=== PATIENT | male | born 1955 | race Caucasian/White ===

== ENCOUNTER 2016-09-19 09:58 | Emergency (ER) | payer OTHER ==
[~2016-09-19] VITALS: Ht 182.9 cm; Wt 75.0 kg
[2016-09-19 10:03] VITALS: BP 159/104; PULSE 73; RESP 20; O2SAT 99
--- NOTE | 2016-09-19 12:02 | ED.REPORT ---
HPI-Neurologic Deficit Date of Service Sep 19, 2016 ED Provider: Florentino Green PA-C Dr. Reyes is a 61-year-old male with a history of Tourette syndrome who presents with chief complaint of weakness, back pain and abdominal pain. 3 week history of paraspinal pain between his shoulder blades associated with left flank pain and abdominal pain which is severe enough to prevent sleep. He states the pain is worse at night. Abdominal pain is not colicky, not relieved by belching or passing gas. He did not find an enema helpful. In the last week he has noticed numbness/tingling in his fingers and toes, has a sensation in his left hand is weak and ataxic and has developed a waddling gait. Last night he reports that he soaked in a hot tub, felt lightheaded stood up. After sitting for a moment he karolina again and had a syncopal episode in which he struck his head on the ground. He denies headache, vomiting, seizure, use of blood thinners. Has been seen both by his primary care provider in urgent care in the last 2 weeks. Abdominal series was suggestive of constipation. CBC and CMP were normal as well as urinalysis. The urgent care yesterday did note some small white lesions in his mouth. Nursing Notes Stated Complaint: BACKPAIN/WEAKNESS/ABDOMINAL PAIN Chief Complaint: General Complaint Nursing Notes Reviewed: Yes Allergies: Coded Allergies: codeine (Verified Allergy, Unknown, Rash, 09/19/16) primidone (Verified Allergy, Unknown, ANXIETY, 09/19/16) General Time Seen by Provider: 11:01 Chief Complaint Other (back pain, weakness, abdominal pain) Sudden in Onset?: No Review of Systems General: Denies fever, chills, malaise. HEENT: Denies congestion, headache, sore throat. Respiratory: Denies dyspnea, cough, shortness of breath, wheezing. Cardiovascular: Denies chest pain, palpitations. Gastrointestinal: Admits abdominal pain. Denies vomiting, diarrhea Genitourinary: Denies frequency, urgency, dysuria, hematuria. Otherwise as noted in HPI. Physical Exam General: Well appearing, well developed, well nourished, no acute distress. Head: Atraumatic, normocephalic. No mastoid tenderness. Eyes: No scleral icterus or injection. No discharge. PERRL. Vision grossly intact. Ears: Pinna and tragus nontender with manipulation. External auditory canal patent, atraumatic and without discharge. Tympanic membrane squires, shiny and translucent without fluid, bulging, retraction or perforation. Hearing grossly intact. Nose: Symmetrical, nares patent without discharge. No frontal or maxillary sinus tenderness. Mouth/pharynx: Mild 1 mm white papules noted on bilateral buccal mucous membrane. Palatal petechia noted. Normal dentition, mucus membranes moist. Tonsils 2+ and symmetrical, uvula midline. Pharynx noninjected, no cobblestoning or discharge. Voice clear. Neck: No tenderness or lymphadenopathy. Trachea midline. Respiratory: Regular rate and rhythm. Breath sounds present, clear to auscultation and equal bilaterally. No respiratory distress. No increased work of breathing, speaks in complete sentences. Cardiovascular: Regular rate and rhythm, without murmur, gallop or rub. No pedal edema. Gastrointestinal: Abdomen flat and non-tender without guarding or rebound. Bowel sounds normoactive. Skin: Warm and dry. Back: Multiple to inspection. No spinous process tenderness. Mild paraspinal tenderness in thoracic region. No CVA tenderness to palpation or percussion. Neurological: Mild upper body spasms noted. Finger-nose normal though the patient reports it feels clumsy, rapid hand normal, no pronator drift. Deltoid abduction, wrist flexion and extension, finger flexion and abduction strength 5/5 B/L. Sensation to sharp touch intact over deltoid as well as first , third and fifth digits B/L. Biceps, triceps and brachioradialis absent B/L. Slightly wide, toe walk, heel walk, Romberg. Hip flexion, knee extension, ankle dorsiflexion and plantarflexion strength 5/5 B/L. Patellar and Achilles reflexes absent B/L. Sensation to sharp touch intact at medial leg, dorsal foot and lateral foot B/L. negative seated leg raise, negative cross straight leg raise. Cranial nerves: Vision grossly intact, PERRL, EOMI. Facial motion symmetrical, sensation to light touch over forehead, maxilla and mandible present and equal B /L. Voice clear and fluent, no drooling/pooling of saliva, uvula rises midline. Psychological: Alert and oriented x3. Speech appropriate, linear and logical. Behavior appropriate. Initial Vital Signs Vital Signs (First) Date Time Temp Pulse Resp B/P Pulse Ox O2 Delivery O2 Flow Rate FiO2 09/19/16 10:03 36.0 73 20 159/104 99 Room Air Initial VS: Reviewed, Vital signs abnormal (elevated blood pressure) Interpretation & Diagnostics Interpretation & Diagnostics: PROCEDURE: MRI CERVICAL SPINE WITHOUT CONTRAST ([id number]) INDICATIONS: Upper extremity ataxia following trauma. IMPRESSION: 1. Mild multilevel degenerative disc disease. 2. Moderate to severe C5-C6 central canal narrowing secondary to degenerative changes. 3. Mild bilateral C4-C5 neural foraminal narrowing. Mild left C5-C6 and C6-C7 neural foraminal narrowing. 4. No neural impingement. 5. No evidence of fracture or subluxation. 6. Image quality by patient motion. Lab Results Interpretation Result Diagram: 09/19/16 1240 09/19/16 1240 Test 09/19/16 12:40 09/19/16 14:02 White Blood Count 11.4th/mm3 (3.8-10.1) Red Blood Count 4.96mil/mm3 (4.40-5.80) Hemoglobin 15.6g/dL (13.8-17.2) Hematocrit 42.3% (41.0-50.0) Mean Corpuscular Volume 85.3fL (81-100) Mean Corpuscular Hemoglobin 31.5pg (27.0-35.0) Mean Corpuscular Hemoglobin Concent 36.9% (32.0-37.0) Red Cell Distribution Width 12.8% (12.3-15.4) Platelet Count 265bil/L (150-400) Neutrophils (%) (Auto) 71.5% (40-74) Lymphocytes (%) (Auto) 18.0% (14-46) Monocytes (%) (Auto) 8.7% (4-12) Eosinophils (%) (Auto) 1.3% (0-5) Basophils (%) (Auto) 0.2% (0-3) Sodium Level 130mEq/L (134-144) Potassium Level 3.5mEq/L (3.5-5.2) Chloride Level 93mEq/L (97-108) Carbon Dioxide Level 20mmol/L (18-29) Blood Urea Nitrogen 19mg/dL (8-27) Creatinine 0.66mg/dL (0.76-1.27) Estimat Glomerular Filtration Rate 130mL/min (>59) Glucose Level 125mg/dL (60-99) Calcium Level 9.5mg/dL (8.5-10.1) Total Bilirubin 1.2mg/dL (0.0-1.2) Aspartate Amino Transf (AST/SGOT) 35U/L (0-50) Alanine Aminotransferase (ALT/SGPT) 34U/L (0-44) Alkaline Phosphatase 53U/L (25-160) Total Creatine Kinase 169U/L (21-232) Total Protein 7.1g/dL (6.4-8.4) Albumin 4.4g/dL (3.4-5.0) Hold Montesinos Top Tube Received (Received) Urine Color Straw (YELLOW) Urine Appearance Hazy (CLEAR,HAZY) Urine pH 6.0 (5.0-8.0) Urine Specific [place] 1.010 (1.003-1.035) Urine Protein Negativemg/dL (NEG,TRACE) Urine Glucose (UA) Negativemg/dL (NEGATIVE) Urine Ketones 15mg/dL (NEGATIVE) Urine Occult Blood Trace (NEGATIVE) Urine Nitrite Negative (NEGATIVE) Urine Bilirubin Negative (NEGATIVE) Urine Urobilinogen Normalmg/dL (NORMAL) Urine Leukocyte Esterase Negative (NEGATIVE) Urine RBC 0-2/hpf (0-2) Urine WBC 0-5/hpf (0-5) Urine Epithelial Cells Occasional/hpf (NONE-MOD) Urine Crystals None seen (NONE SEEN) Urine Bacteria None/hpf (NONE-FEW) Urine Hyaline Casts None/lpf (NONE) Urine Granular Casts None seen (NONE SEEN) Urine Waxy Casts None seen (NONE SEEN) Urine Red Blood Cell Casts None seen (NONE SEEN) Urine White Blood Cell Casts None seen (NONE SEEN) Urine Mucus Present (None Seen) Urine Trichomonas None seen (NONE SEEN) Urine Yeast None (NONE SEEN) Urinalysis Comment None Urine Culture Reflexed Not indicated Re-Eval/Medical Decision Med Decision/Clinical Course I discussed this case with Dr. Pack met with and examined the patient. 61-year-old male presents with chief complaint of weakness, abdominal pain and left flank pain. He believes the history begins approximately 3 weeks ago with a fall skiing. Pain in his back abdomen inside of them aggressively worse over the last 3 weeks. He now complains of left arm weakness and clumsiness as well as an altered gait. He describes a syncopal episode last night after getting out of a hot tub. Incidental finding of white papules on the buccal mucosa noted at a previous visit to the urgent care. Physical examination is largely benign with no abdominal tenderness, no CVA tenderness. Neurological examination reveals a normal finger to nose, however the patient states it feels ataxic. Dr. Alan Stock feels he may detected some weakness on the left tricep extension. There is also question of a slightly widened gait. CBC reveals only mild leukocytosis without left shift CMP is within acceptable limits. Urinalysis is normal discussed these findings with the patient's primary care provider who endorsed similar findings, and believes his gait is widened from his baseline. He feels that MRI is appropriate and expresses concern about herpetic encephalitis or possibly Guyon levin syndrome. Ordered a cervical spine MRI which reveals central canal stenosis as well as several levels of left-sided foraminal stenosis. Discussed findings with the neurologist who examined the MRI. She does not believe there is an emergent condition. She believes that his symptoms of weakness are most likely due to radiculopathy. She is not concerned about Guyon levin or encephalitis. She does not feel that a lumbar puncture is warranted. She advises primary care follow-up and physical therapy. I do not believe his abdominal pain is caused by an immediately dangerous condition such as appendicitis, cholecystitis, pancreatitis, pyelonephritis, nephrolithiasis. Discussed this with the patient. Advised primary care follow-up and consideration of physical therapy. Provided return precautions. Patient understands and agrees with the plan. Consultation #1: Referral / Consult Name: Harjeet Aragon MD Consulted With: Primary care physician Call Returned at: 11:50 Note: Discussed the case with patient's primary care physician. He finds the onset of neurological symptoms and white vesicles concerning. He expresses concern regarding perhaps hepatic encephalopathy or Guillain-Levin syndrome. He has noted slightly reduced inspector screen printing and slight arm drooped and his neurological examination as well as a wide gait. He believes the patient needs head and spine MRI, as well as culturing of the vesicles in his mouth. Consultation #2: Referral / Consult Name: Hafsa Barger MD Consulted With: Neurology Requested Call at: 13:50 Call Returned at: 13:59 Note: Dr. More reviewed cervical spine MRI, noted possible T5-6 herniation which is most likely chronic as well as possible foraminal narrowing on the left side. Negative for cord compression. She does not believe further investigation is warranted. She is not concerned about herpetic encephalopathy or Guyon levin at this point. She does not believe a lumbar puncture is warranted. Advised primary care follow-up, consider physical therapy. Discharge & Departure Impression: Primary Impression: Weakness Additional Impression: Abdominal pain Abdominal location: unspecified location Qualified Code: R10.9 - Unspecified abdominal pain Disposition: Home Discharge Condition All VS Reviewed: Yes Condition: Stable Additional Instructions: Evaluation for weakness and abdominal pain in the emergency department. Cervical spine MRI revealed degenerative changes that may be responsible for your weakness. I discussed these results with the neurologist who feels that primary care follow-up and considering physical therapy is appropriate. She did not feel that further investigation was warranted. CBC, CMP and urinalysis did not indicate any acute infection or organ dysfunction that would be responsible for your abdominal pain. I do not think this is caused by an immediately dangerous condition. Considering your previous findings on x-ray I think it would be appropriate to trial over-the- counter MiraLAX for 1 week. Please follow up with your primary care provider in the next week or so. Return to the emergency department for any new or worsening symptoms including new weakness, stroke symptoms, fever or severe headache. Referrals: Harjeet Aragon MD EDSupervising Provider for APC: Melo Pack MD Attending Statement I discussed patient with RYLAN Green. I was asked to evaluate patient. In brief 61-year-old male presenting with a bizarre constellation of symptoms including upper extremity weakness and clumsiness as well as lower extremity weakness. Also with trauma while skiing one month ago with subsequent muscle aches treated with narcotics. Left flank tenderness diagnosed as musculoskeletal by other physicians. His pain is mostly resolved now just complaining of some clumsiness. No headache or fevers. His abdomen is soft nontender. He has no meningeal signs or symptoms. His neurological exam is normal. MRIs C-spine performed which showed central cord stenosis at C5-6. He has no neuro deficits at this time. Labs are unremarkable. Neurology was consulted who recommended discharging the patient home without a lumbar puncture or further testing. Patient is advised by RYLAN Green to follow-up with his primary doctor regarding his MRI findings and his symptoms. copies to: Harjeet Aragno MD, Seth PA-C Sep 19, 2016 12:02 Melo Pack MD Sep 19, 2016 18:00
[2016-09-19 12:06] VITALS: BP 142/96; PULSE 74; RESP 18; O2SAT 97
[2016-09-19 12:49] LABS: BASOPHILS % (AUTO) 0.2 % (0-3); EOSINOPHILS % (AUTO) 1.3 % (0-5); MONOCYTES % (AUTO) 8.7 % (4-12); Mean Corpuscular Hemoglobin 31.5 pg (27.0-35.0); Mean Corpuscular Volume 85.3 fL (81-100); NEUTROPHILS % (AUTO) 71.5 % (40-74); Platelet Count 265 bil/L (150-400)
--- NOTE | 2016-09-19 14:14 | DRSVH ---
PROCEDURE: MRI CERVICAL SPINE WITHOUT CONTRAST ([id number]) INDICATIONS: Upper extremity ataxia following trauma. TECHNIQUE: Noncontrast sagittal T1 spin echo and T2 fast spin echo, sagittal STIR, foraminal oblique sagittal T2 fast spin echo, and axial gradient echo or T2 fast spin echo through the cervical spine. COMPARISON: [facility] , MR, CERVICAL SPINE W&W/O CONTRAST, 02/13/2007, 19:23. FINDINGS: Image quality: Limited by motion artifact. Alignment and Curvature: There is normal bony alignment and curvature. Bone Marrow: Marrow demonstrates normal overall signal. No evidence of vertebral body compression fr acture. No subluxation. Spinal Cord: Visualized spinal cord has normal size and signal. No cerebellar tonsillar herniation. Paraspinous Soft Tissues: No paravertebral masses. Prevertebral soft tissues are normal in thicknes s. No paraspinous soft tissue hematomas or edema. C2-C3: Loss of disc signal. No central stenosis. No neural foraminal narrowing. No neural impingement . C3-C4: Loss of disc signal. Small central disc protrusion superimposed upon diffuse disc bulge. No ce ntral stenosis. No neural foraminal narrowing. No neural impingement. C4-C5: Loss of disc signal. Mild, diffuse disc bulge. Small central disc protrusion superimposed on d iffuse disc bulge. Mild narrowing of the central canal secondary to disc disease. Mild bilateral neur al foraminal narrowing secondary to disc disease. No neural impingement C5-C6: Loss of the signal. Mild, diffuse disc bulge. Small central disc protrusion superimposed on di ffuse disc bulge. Moderate to severe narrowing of the central canal secondary to disc disease. Mild l eft neural foraminal narrowing secondary to disc disease. No neural impingement. C6-C7: Disc has a normal appearance. Mild left facet hypertrophy. No central stenosis. Mild left neur oforaminal narrowing secondary to facet hypertrophy. No neural impingement. C7-T1: Normal appearance. IMPRESSION: 1. Mild multilevel degenerative disc disease. 2. Moderate to severe C5-C6 central canal narrowing secondary to degenerative changes. 3. Mild bilateral C4-C5 neural foraminal narrowing. Mild left C5-C6 and C6-C7 neural foraminal narrow ing. 4. No neural impingement. 5. No evidence of fracture or subluxation. 6. Image quality by patient motion. Dictated by: Torri Weeks MD, PhD on 09/19/2016 at 13:45 Approved by: Torri Weeks MD, PhD on 09/19/2016 at 14:12
[2016-09-19 14:20] LABS: APPEARANCE,URINE HAZY (CLEAR,HAZY); COLOR,URINE STRAW (YELLOW); OCCULT BLOOD,URINE TRACE (NEGATIVE); UROBILINOGEN,URINE NORMAL (NORMAL)
[2016-09-19 14:58] VITALS: BP 112/64; PULSE 72; RESP 16; O2SAT 99
== END 2016-09-19 14:58 | disposition home or self-care (01) ==
LOC: SED 09:58
DX: R53.1 Weakness (principal); R10.9 Unspecified abdominal pain; R27.0 Ataxia, unspecified; Z88.5 Allergy status to narcotic agent

== ENCOUNTER 2016-09-23 09:12 | Emergency (ER) | payer OTHER ==
[~2016-09-23] VITALS: Ht 182.9 cm; Wt 74.5 kg
[2016-09-23 09:18] VITALS: BP 160/98; PULSE 73; RESP 18; O2SAT 100
--- NOTE | 2016-09-23 09:41 | ED.REPORT ---
HPI-Abd Pain M 40 and Over Date of Service Sep 23, 2016 ED Provider: Tad Escoto DO Pt is a 61 y/o male w/ a hx of non-Hodgkin's lymphoma, presenting to the ED with chief complaint of intermittent LUQ and left flank abdominal pain onset 24 days ago. He c/o associated generalized weakness, pleuritic abdominal pain. He normally swims 3x per week but last week found it significantly more difficult to bring himself through the water because of bilateral arm weakness. He reports his weakness is most profound about his bilateral arms with associated tingling sensation of the fingertips. He denies dysphagia, diplopia, fever, chills, CP, SOB, focal numbness/weakness, ROMAN. He was seen by Urgent Care and they told him that he had a rash in his mouth which subsequently tested negative for Herpes. 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 Nursing Notes Stated Complaint: WEAKNESS,LACK OF SLEEP,ABD PAIN Chief Complaint: General Complaint Nursing Notes Reviewed: Yes Allergies: Coded Allergies: codeine (Verified Allergy, Unknown, Rash, 09/19/16) primidone (Verified Allergy, Unknown, ANXIETY, 09/19/16) Scheduled Atorvastatin Calcium (Atorvastatin Calcium) 10 Mg Tablet 10 MG PO DAILY Cholecalciferol (Vitamin D3) (Vitamin D) 1,000 Unit Capsule 2,000 UNIT PO DAILY Diazepam (Valium) 5 Mg Tablet 5 MG PO HS Loratadine (Claritin) 10 Mg Capsule 10 MG PO DAILY Naproxen Sodium (Aleve) 220 Mg Capsule 220 MG PO TID Omeprazole Magnesium (Prilosec Otc) 20 Mg Tablet.dr 20 MG PO DAILY Propranolol HCl (Propranolol HCl) 10 Mg Tablet 10 MG PO TID Scheduled PRN Acetaminophen (Acetaminophen) 325 Mg Tablet 650 MG PO Q4H PRN PRN For Pain Lorazepam (Lorazepam) 1 Mg Tablet 1 MG PO TID PRN PRN For Anxiety Sennosides (Senna) 8.6 Mg Tablet 8.6 MG PO PRN For Constipation Zolpidem (Zolpidem) 10 Mg Tablet 10 MG PO HS PRN PRN For Insomnia oxyCODONE-Acetaminophen 5-325 mg (oxyCODONE-Acetaminophen 5-325 mg) 1 Each Tablet 1 TAB PO Q6H PRN PRN For Pain Miscellaneous Medications Levothyroxine (Levothyroxine) 88 Mcg Tablet Polyethylene Glycol 3350 (Miralax) 17 Gm Powd.pack 17 GM PO Simethicone (Gas-X) 125 Mg Capsule 125 MG PO General Time Seen by MD: 09:38 Chief Complaint Abdominal pain Hx Obtained From: Patient Arrived By: Walk-in Sudden in Onset?: No Onset Occurred: More than a week ago... 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 Neurologic: Reports: Numbness, Weakness, Denies: Focal weakness, Headache Physical Exam Initial Vital Signs Vital Signs (First) Date Time Temp Pulse Resp B/P Pulse Ox O2 Delivery O2 Flow Rate FiO2 09/23/16 09:18 36.1 73 18 160/98 100 09/23/16 14:15 Room Air Initial VS: Reviewed, Vital signs abnormal Head / Eyes: Atraumatic, Normocephalic, PERRL ENT: Mucous membranes moist, Conjunctiva normal, No scleral icterus Neck: Supple, Full range of motion Extremities: Vascular intact, Neuro intact, No swelling, No tenderness Skin: Warm, Dry, No cyanosis Psychiatric: Mood/affect normal, Behavior normal, Normal thought content General/Constitutional: Awake, Alert, No acute distress, Well appearing, Cooperative, Not toxic appearing Respiratory / Chest: Atraumatic, Breath sounds NL, Breath sounds = bilat, No respiratory distress, No rales, No rhonchi, No wheezing, No retractions, No stridor, No chest tenderness, No chest wall deformity, No crepitus Cardiovascular: Heart rate NL, Regular rhythm, Heart sounds NL, No gallop, No murmurs, No rubs, Cap refill not delayed, Peripheral circulation NL Abdomen: Atraumatic, Soft, Non-tender, No guarding, No rebound, No distention, No palpable mass Back: Atraumatic, Inspection NL, Full range of motion, Painless range of motion , Non-tender, No midline vertebral tend, No paraspinal tenderness, No muscle spasm Neurologic: Oriented X3, Speech NL, No motor deficits, No sensory deficits, CN II - XII intact, Cerebellar NL, Memory NL, Gait NL Resting twitch - he attributes to Tourettes Interpretation & Diagnostics Interpretation & Diagnostics: Chest/abd/pelvis w/ contrast: IMPRESSION: 1. Biapical scarring. No definitive CT findings to explain pleuritic left chest pain. 2. Probable mild gastric wall thickening versus artifact. 3. Prominent prostate. Dictated by: Karley Serrato M.D. on 09/23/2016 at 13:05 Approved by: Karley Serrato M.D. on 09/23/2016 at 13:10 Lab Results Interpretation Result Diagram: 09/23/16 1017 09/23/16 1017 Test 09/23/16 10:17 White Blood Count 10.3th/mm3 (3.8-10.1) Red Blood Count 4.90mil/mm3 (4.40-5.80) Hemoglobin 15.3g/dL (13.8-17.2) Hematocrit 41.8% (41.0-50.0) Mean Corpuscular Volume 85.3fL (81-100) Mean Corpuscular Hemoglobin 31.2pg (27.0-35.0) Mean Corpuscular Hemoglobin Concent 36.6% (32.0-37.0) Red Cell Distribution Width 12.8% (12.3-15.4) Platelet Count 281bil/L (150-400) Neutrophils (%) (Auto) 66.4% (40-74) Lymphocytes (%) (Auto) 19.1% (14-46) Monocytes (%) (Auto) 11.9% (4-12) Eosinophils (%) (Auto) 1.9% (0-5) Basophils (%) (Auto) 0.5% (0-3) Prothrombin Time 11.1sec (8.1-12.5) Prothromb Time International Ratio 1.04ratio Sodium Level 132mEq/L (134-144) Potassium Level 3.8mEq/L (3.5-5.2) Chloride Level 93mEq/L (97-108) Carbon Dioxide Level 24mmol/L (18-29) Blood Urea Nitrogen 18mg/dL (8-27) Creatinine 0.73mg/dL (0.76-1.27) Estimat Glomerular Filtration Rate 116mL/min (>59) Glucose Level 117mg/dL (60-99) Lactic Acid Level 1.5mmol/L (0.4-2.0) Calcium Level 9.5mg/dL (8.5-10.1) Magnesium Level 2.1mg/dL (1.6-2.6) Total Bilirubin 0.6mg/dL (0.0-1.2) Aspartate Amino Transf (AST/SGOT) 33U/L (0-50) Alanine Aminotransferase (ALT/SGPT) 33U/L (0-44) Alkaline Phosphatase 57U/L (25-160) Total Protein 7.2g/dL (6.4-8.4) Albumin 4.4g/dL (3.4-5.0) Lipase 105U/L (13-60) ECG Interpretation ECG Interpretation: Sinus rhythm rate 69 Multiple PVCs Probable LAE Time: 10:09 Interpreted by: ED physician Normal ECG Interpretation: No acute ischemic changes Re-Eval/Medical Decision Med Decision/Clinical Course 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 He has had several evaluations and workups with multiple providers without a clear explanation. For this reason, a more resource intensive diagnostic evaluation was performed which included laboratory evaluation and CAT scans of the chest abdomen and pelvis. There are no clinically significant abnormality on CAT scan, he has mild elevation of his lipase and mild hyponatremia neither which seem to be clinically significant. Etiology of his symptoms are unclear if he has met milestones with which to go home, he is not prominently septic or clinically unstable, he is ambulatory, there is no impending respiratory compromise. His symptoms do not seem to focalize to a particular spinal level, and he has already had MRIs of the head and C-spine that per his report were normal. While He complains of weakness, overall he is rather functional at this time. The etiology of his symptoms as yet unclear, I feel this patient would greatly benefit from very close outpatient follow-up with his primary care and with neurology. Strict return and follow-up precautions given. Of note, his other large concern is inability to sleep due to this left upper quadrant pain, he was prescribed Valium and oxycodone for this. Time of Eval: 11:53 Re-Evaluation/Progress Note: Pt rechecked. Feels similar. Discussed lab results. Time of Eval: 13:51 Patient Status: Condition improved Re-Evaluation/Progress Note: Pt rechecked. Informed pt of plan for treatment. Pt understands and agrees with plan for treatment. F/U and RTER warnings given. All questions addressed. Counseled Regarding: Diagnosis, Lab results, Need for follow-up, When/why to return to ED Discharge & Departure Primary Impression: Weakness Additional Impression: Abdominal pain Abdominal location: unspecified location Qualified Code: R10.9 - Unspecified abdominal pain Disposition: Home Vital Signs - All Vital Signs Date Time Temp Pulse Resp B/P Pulse Ox O2 Delivery O2 Flow Rate FiO2 09/23/16 14:17 37.0 75 16 178/104 75 Room Air 09/23/16 14:15 37.0 75 16 178/104 75 Room Air 09/23/16 09:18 36.1 73 18 160/98 100 )( All Prior VS Reviewed: Yes Condition: Stable Additional Instructions: I am so sorry that this is happening, I hope that you find a solution and some relief soon. Use the medications prescribed. Be sure to call your regular doctor in the morning and also follow-up with neurology. Return to ER as needed for worsening or progressive symptoms. Referrals: Nato Winters MD (PCP) Scribe Attestation Portions of this note were transcribed by Francisco Ramos. I, Dr. Escoto personally performed the history, physical exam and medical decision-making; I reviewed and confirmed the accuracy of the information in the transcribed note. Signed by Sandy Max, 09/23/16 - 1030 copies to: Nato Winters MD, Timothy S DO Sep 23, 2016 09:41 FRANCISCO RAMOS Sep 23, 2016 10:12
[2016-09-23] MEDS ORDERED: 0.9% Sodium Chloride 1,000 ML IV ONE (09:52)
[2016-09-23] MEDS ORDERED: Ondansetron 2 mg/mL 2 mL Inj IVPUSH PRN (09:55)
[2016-09-23 10:35] LABS: BASOPHILS % (AUTO) 0.5 % (0-3); EOSINOPHILS % (AUTO) 1.9 % (0-5); MONOCYTES % (AUTO) 11.9 % (4-12); Mean Corpuscular Hemoglobin 31.2 pg (27.0-35.0); Mean Corpuscular Volume 85.3 fL (81-100); NEUTROPHILS % (AUTO) 66.4 % (40-74); Platelet Count 281 bil/L (150-400)
[2016-09-23] MEDS ORDERED: LORA1TAB PO (10:44)
[2016-09-23] MEDS ORDERED: CHOL100045 PO (10:44)
[2016-09-23] MEDS ORDERED: SIME125C PO (10:44)
[2016-09-23] MEDS ORDERED: ACET325T51 PO (10:44)
[2016-09-23] MEDS ORDERED: ATOR10TA66 PO (10:44)
[2016-09-23] MEDS ORDERED: SENN-133 PO (10:44)
[2016-09-23] MEDS ORDERED: POLY17PO6 PO (10:44)
[2016-09-23] MEDS ORDERED: OMEP20TA24 PO (10:44)
[2016-09-23] MEDS ORDERED: LEVO88TA4 PO (10:44)
[2016-09-23] MEDS ORDERED: NAPR220C11 PO (10:44)
[2016-09-23] MEDS ORDERED: ZOLP10TA5 PO (10:44)
[2016-09-23] MEDS ORDERED: LORA10CA PO (10:44)
[2016-09-23] MEDS ORDERED: PROP10TA8 PO (10:44)
[2016-09-23 10:48] LABS: INR 1.04 ratio
[2016-09-23 10:56] LABS: Magnesium 2.1 mg/dL (1.6-2.6)
[2016-09-23] MEDS ORDERED: Iohexol 300 mg/mL 30 mL Inj PO ONE (11:25)
--- NOTE | 2016-09-23 13:12 | DRSVH ---
PROCEDURE: CT CHEST, ABDOMEN AND PELVIS [facility] CONTRAST ([id number]) INDICATIONS: pleuritic chest pain, LUQ pain TECHNIQUE: After the administration of oral and intravenous contrast, 5 mm thick sections acquired from the lung apices to the symphysis. 5 mm coronal and sagittal reformats were performed, with additional 7 mm c oronal MIP reformats through the lungs. For radiation dose reduction, the following was used: autom ated exposure control, adjustment of mA and/or kV according to patient size. COMPARISON: None. FINDINGS: Image quality: Excellent. CHEST: Lungs and pleura: There are biapical scars. No acute airspace opacities. No pleural effusions or pn eumothorax. Central and peripheral airways appear patent and normal in caliber. Mediastinum: Heart size is normal. No pericardial effusion. No mediastinal or hilar adenopathy by size criteria. Thoracic aorta and central pulmonary arteries are normal in size. Esophagus is farhan l in caliber. No hiatal hernia. Chest wall: No axillary or supraclavicular adenopathy by size criteria. Thyroid gland is normal. ABDOMEN: Solid organs: Liver and spleen are normal in size and enhancement. Gallbladder is normal. Biliary system is non dilated. Pancreas enhances normally. No adrenal nodules. Kidneys demonstrate normal size and enhancement, without hydronephrosis. Peritoneum and bowel: Stomach appears mildly thickened versus artifact. Bowel loops demonstrate norm al wall thickness and caliber. No free fluid or air. Nodes and vessels: No retroperitoneal or mesenteric adenopathy by size criteria. Aorta and inferior vena cava are normal in size. Miscellaneous: No ventral hernias. PELVIS: Genitourinary: Bladder wall thickness is normal. Prostate is enlarged. Miscellaneous: No inguinal hernias or adenopathy. Bones: No suspicious bony lesions. No vertebral body compression fractures. IMPRESSION: 1. Biapical scarring. No definitive CT findings to explain pleuritic left chest pain. 2. Probable mild gastric wall thickening versus artifact. 3. Prominent prostate. Dictated by: Karley Serrato M.D. on 09/23/2016 at 13:05 Approved by: Karley Serrato M.D. on 09/23/2016 at 13:10
[2016-09-23] MEDS ORDERED: OXYC1TAB24 PO (13:48)
[2016-09-23] MEDS ORDERED: DIAZ5TAB PO (13:48)
[2016-09-23 14:15] VITALS: BP 178/104; PULSE 75; RESP 16; O2SAT 75
[2016-09-23 14:17] VITALS: BP 178/104; PULSE 75; RESP 16; O2SAT 75
== END 2016-09-23 14:19 | disposition home or self-care (01) ==
LOC: SED 09:12
DX: R10.12 Left upper quadrant pain (principal); R10.32 Left lower quadrant pain; R53.1 Weakness; R20.2 Paresthesia of skin; J45.20 Mild intermittent asthma, uncomplicated; Z98.890 Other specified postprocedural states; Z88.5 Allergy status to narcotic agent; Z88.8 Allergy status to other drugs, medicaments and biological substances
CPT/HCPCS: 36415; 71260; 74177; 80053; 83605; 83690; 83735; 85025; 85610; 93005; 96361; 96374; 96375; 99285; J2270; J2405; J7030; Q9967

== ENCOUNTER 2016-09-25 09:41 | Inpatient (IN) | payer OTHER ==
[~2016-09-25] VITALS: Ht 182.9 cm; Wt 75.4 kg
[2016-09-25] VITALS (10 sets, daily range): BP systolic 155–199; BP diastolic 93–107; PULSE 69–91; RESP 15–25; O2SAT 95–100
[~2016-09-25 09:41] MED LIST: ACET325T51 PO; ATOR10TA66 PO; CHOL100045 PO; DIAZ5TAB PO; LEVO88TA4 PO; LORA10CA PO; LORA1TAB PO; NAPR220C11 PO; OMEP20TA24 PO; OXYC1TAB24 PO; POLY17PO6 PO; PROP10TA8 PO; SENN-133 PO; SIME125C PO; ZOLP10TA5 PO
--- NOTE | 2016-09-25 10:10 | ED.REPORT ---
HPI-General Illness Date of Service Sep 25, 2016 ED Provider: Andrew Stout MD Pt is a 61 y/o male w/ a hx of previous non Hodgkin's lymphoma presenting to the ED w/ his c/o progressively worsening weakness of all 4 extremities onset 3.5 weeks ago. He c/o associated paresthesias of the fingertips and toes along with decreased him clerk strength onset unknown, weakened cough. He believes that his weakness is mildly more pronounced about his left arm and leg. He notes that he swims regularly but recently has been having trouble because of arm and leg weakness. The onset of his symptoms included left flank pain which localized to the LUQ which is intermittently severe enough to cause him to be unable to sleep. He has been seen in the ED twice and Urgent Care multiple times in the recent future for which the etiology of his symptoms has been unclear. His last ED visit involved a CT w/ contrast of the chest, abdomen, and pelvis which showed no findings responsible for his symptoms. A previous ED visit included MRI of the c-spine which showed herniated discs with no acute changes. MRI of the [facility] at [facility] 3 months ago was normal. 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 He also notes increase in blood pressure recently (180-190 systolic) which he states is very abnormal for him (he normally runs low). Pt denies nausea, vomiting, dysphagia, vision change, speech change, fever, chills. He went to a resort in [place] in mid-July of this year and developed a febrile respiratory illness which has now resolved. He is not anticoagulated. 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 Nursing Notes Stated Complaint: SEVERE HYPERTENSION,PROBABLE GUILLAIN BARRE Chief Complaint: General Complaint Nursing Notes Reviewed: Yes Allergies: Coded Allergies: codeine (Verified Allergy, Unknown, Rash, 09/25/16) primidone (Verified Allergy, Unknown, ANXIETY, 09/25/16) Scheduled Atorvastatin Calcium (Atorvastatin Calcium) 10 Mg Tablet 10 MG PO HS Cholecalciferol (Vitamin D3) (Vitamin D) 1,000 Unit Capsule 2,000 UNIT PO DAILY Levothyroxine (Levothyroxine) 88 Mcg Tablet 88 MCG PO DAILY Loratadine (Claritin) 10 Mg Capsule 10 MG PO DAILY Melatonin (Melatonin 1 mg Tablet) 1 Each Tablet 1 MG PO HS Naproxen Sodium (Aleve) 220 Mg Capsule 220 MG PO TID Omeprazole Magnesium (Prilosec Otc) 20 Mg Tablet.dr 20 MG PO DAILY Polyethylene Glycol 3350 (Miralax) 17 Gm Powd.pack 17 GM PO DAILY Propranolol HCl (Propranolol HCl) 10 Mg Tablet 10 MG PO TID Sennosides (Senna) 8.6 Mg Tablet 17.2 MG PO DAILY Triamcinolone Acetonide (Nasacort) 10.8 Ml [place] 1 SPRAY NS DAILY Scheduled PRN Acetaminophen (Acetaminophen) 325 Mg Tablet 650 MG PO BID PRN PRN For Pain Diazepam (Diazepam) 5 Mg Tablet 5 MG PO TID PRN PRN For Anxiety Zolpidem (Zolpidem) 10 Mg Tablet 10 MG PO HS PRN PRN For Insomnia oxyCODONE-Acetaminophen 5-325 mg (oxyCODONE-Acetaminophen 5-325 mg) 1 Each Tablet 1 TAB PO Q6H PRN PRN For Pain General Time Seen by MD: 09:55 Chief Complaint Weakness Hx Obtained From: Patient Arrived By: Walk-in Onset Occurred: More than a week ago... 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 Physical Exam Vital Signs Vital Signs Date Time Temp Pulse Resp B/P Pulse Ox O2 Delivery O2 Flow Rate FiO2 09/25/16 15:16 91 19 156/95 95 Room Air 09/25/16 14:13 74 15 167/107 09/25/16 11:31 71 25 160/94 97 Room Air 09/25/16 09:43 36.7 69 18 186/104 97 Room Air Initial VS: Reviewed, Vital signs abnormal Head / Eyes: Atraumatic, Normocephalic, PERRL ENT: Mucous membranes moist, Conjunctiva normal, No scleral icterus Neck: Supple, Full range of motion Respiratory: Breath sounds normal, Clear to auscultation, No respiratory distress Cardiovascular: Regular rate & rhythm, Heart sounds normal, Intact distal pulses Skin: Warm, Dry, No cyanosis Psychiatric: Mood/affect normal, Behavior normal, Normal thought content General/Constitutional: Awake, Alert, No acute distress, Well appearing, Cooperative, Not toxic appearing Abdomen: Atraumatic, Soft, Non-tender, McBurney's non-tender, No guarding, No rebound, BS normoactive, No distention, No palpable mass Organomegaly / Mass / Hernia: Negative: Hepatomegaly, Splenomegaly Neurologic: Oriented X3, Speech NL, Memory NL right quadriceps 5/5, hamstring strength 4/5 left quadriceps 4/5, hamstring strength 5/5 Left Babinski's are equivocal, Right toes are down-going Left patellar reflex 2+ Right patellar reflex absent Power Brake Operator strength 4/5 bilat Elbow extensors are subjectively weak Flexors 3/5 on left, 4/5 on right Interpretation & Diagnostics Lab Results Interpretation Result Diagram: 09/25/16 1029 09/25/16 1029 Test 09/25/16 10:29 09/25/16 11:28 09/25/16 16:18 White Blood Count 11.3th/mm3 (3.8-10.1) Red Blood Count 4.56mil/mm3 (4.40-5.80) Hemoglobin 14.4g/dL (13.8-17.2) Hematocrit 40.2% (41.0-50.0) Mean Corpuscular Volume 88.2fL (81-100) Mean Corpuscular Hemoglobin 31.6pg (27.0-35.0) Mean Corpuscular Hemoglobin Concent 35.8% (32.0-37.0) Red Cell Distribution Width 13.1% (12.3-15.4) Platelet Count 278bil/L (150-400) Neutrophils (%) (Auto) 72.1% (40-74) Lymphocytes (%) (Auto) 15.6% (14-46) Monocytes (%) (Auto) 9.5% (4-12) Eosinophils (%) (Auto) 2.1% (0-5) Basophils (%) (Auto) 0.4% (0-3) Sodium Level 131mEq/L (134-144) Potassium Level 4.1mEq/L (3.5-5.2) Chloride Level 95mEq/L (97-108) Carbon Dioxide Level 23mmol/L (18-29) Blood Urea Nitrogen 17mg/dL (8-27) Creatinine 0.78mg/dL (0.76-1.27) Estimat Glomerular Filtration Rate 107mL/min (>59) Glucose Level 111mg/dL (60-99) Calcium Level 9.0mg/dL (8.5-10.1) Total Bilirubin 0.5mg/dL (0.0-1.2) Aspartate Amino Transf (AST/SGOT) 61U/L (0-50) Alanine Aminotransferase (ALT/SGPT) 41U/L (0-44) Alkaline Phosphatase 41U/L (25-160) Total Protein 6.8g/dL (6.4-8.4) Hold [place] Top Tube Received (Received) Hold Urine Received (Received) CSF Appearance Clear (CLEAR) CSF Color Colorless (COLORLESS) CSF WBC 1/mm3 (0-5) CSF RBC 0/mm3 CSF Mononuclear WBCs % CSF Polynuclear WBCs % CSF Other Cells CSF Glucose 70mg/dL (45-90) CSF Total Protein 75mg/dL (15-45) Lab Results Interpretation: Negative inspiratory foce normal at 36. 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 Additionally he does give a history of a viral type prodrome. Negative inspiratory force was normal at 36, he does have weakness on neuro exam, her left foot elevated protein at 75 on the lumbar puncture. Admitted to telemetry with neurology consulting. Time of Eval: 16:04 Re-Evaluation/Progress Note: Pt rechecked. LP performed with no complications. Pt informed of need for admission for complete neurological evaluation. Pt understands and agrees with plan for admission. All questions addressed. Consultation #1: Referral / Consult Name: Stephen Duarte MD Consulted With: Neurology Call Returned at: 15:44 Glass Laminating Operator: Will see patient, Agrees with eval, Agrees with plan Note: Agrees with plan for admit for full neurological evaluation. Will consult. Consultation #2: Consulted With: Hospitalist Call Returned at: 16:48 Glass Laminating Operator: Will see patient, Agrees with eval, Agrees with plan, Accepts admit Counseled Regarding: Diagnosis, Lab results, Need for admission Discharge & Departure Primary Impression: Guillain Baez syndrome Disposition: ADMITTED TO HOSPITAL Discharge Condition All VS Reviewed: Yes Condition: Stable Referrals: Nato Winters MD (PCP) Scribe Attestation Portions of this note were transcribed by Francisco Ramos. I, Dr. Stout personally performed the history, physical exam and medical decision-making; I reviewed and confirmed the accuracy of the information in the transcribed note. Signed by Sandy Max, 09/25/16 - 1100 copies to: Nato Winters MD, Donald L MD Sep 25, 2016 10:10 FRANCISCO RAMOS Sep 25, 2016 10:13
[2016-09-25 11:42] LABS: BASOPHILS % (AUTO) 0.4 % (0-3); EOSINOPHILS % (AUTO) 2.1 % (0-5); MONOCYTES % (AUTO) 9.5 % (4-12); Mean Corpuscular Hemoglobin 31.6 pg (27.0-35.0); Mean Corpuscular Volume 88.2 fL (81-100); NEUTROPHILS % (AUTO) 72.1 % (40-74); Platelet Count 278 bil/L (150-400)
[2016-09-25] MEDS ORDERED: fentaNYL-PF 50 mCg/mL 2 mL Inj IVPUSH ONE (15:30)
[2016-09-25 17:07] LABS: APPEARANCE,CSF SLIGHTLY CLOUDY (CLEAR); COLOR,CSF STRAW (COLORLESS); WHITE BLOOD CELL,CSF 3 /mm3 (0-5)
[2016-09-25 17:08] LABS: APPEARANCE,CSF CLEAR (CLEAR); COLOR,CSF COLORLESS (COLORLESS); WHITE BLOOD CELL,CSF 1 /mm3 (0-5)
[2016-09-25] MEDS ORDERED: POLY17PO6 PO (17:32)
[2016-09-25] MEDS ORDERED: TRIA10.8 NS (17:32)
[2016-09-25] MEDS ORDERED: MELA1TAB10 PO (17:32)
[2016-09-25] MEDS ORDERED: DIAZ5TAB3 PO (17:32)
[2016-09-25] MEDS: hydrALAZINE 20 mg/mL Inj IV PRN (17:56)
--- NOTE | 2016-09-25 18:14 | NUR ---
Admission Admit to room 3007 from ER via [facility] with at bedside. Maintaining RA, SL, A&O x3. Admission RN completing admission assessments and Med Rec. HTN present and provider notified. Provider assessed and new orders for PRN Hydralazine and Amlodipine. Oriented to room and call light. Tele applied. Pt comfortable at this time.
[2016-09-25] MEDS ORDERED: oxyCODONE-Acetamin 5-325 mg Tablet PO PRN ×2 (19:30→22:49)
[2016-09-25] MEDS: Polyethylene Glycol (PEG) 17 Gm Powder PO SCH (19:30)
--- NOTE | 2016-09-25 19:38 | PCM.HPMED ---
Subjective Date of Service Sep 25, 2016 Primary Provider: Admitting Physician: Jed Carrasco MD Primary Care Physician: Nato Winters MD Attending Physician: Jed Carrasco MD Chief Complaint: Worsening upper and lower extremity weakness History of Present Illness: This is a 61 y/o male w/ a hx of previous non Hodgkin's lymphoma , anxiety disorder Tourette Syndrome who presented to the ED w/ his c/o progressively worsening weakness of all 4 extremities for the last past 3 weeks and a half or so. 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 He stated his cough has been weak as well but denies shortness of breath. Extremity weakness is mildly more pronounced at his left arm and leg. A week ago or so he went to his regular swimming activity at the [facility] he said and noted this time he cannot swims as he regularly due to his weakness . He had a couple visit to the emergency room and multiple work up end up empty handed . He also had left flank pain which localized to the LUQ which is intermittently severe enough to cause him to be unable to sleep. a ct scan of chest, abdomen and pelvis were negative. On 09/19/2016, he visited the ED and an MRI of the c-spine showed herniated discs with no acute changes. MRI of the brain at [facility] 3 months ago was normal. Patient was given a referral to a neurologist ( Dr spivey) , only contacted today over the phone and recommended him to continue emergency room again for evaluation for Guillain-[place] syndrome. An ER his blood pressure was found to be 180-190 systolic. 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 He takes propranolol daily for tremor. No nausea, vomiting, dysphagia, vision change, speech change, fever, chills. Of note , patient was on vacation in [place] 3 months ago and had a flu/febrile illness Review of Systems: Review of systems is pertinent for described above in history of present illness otherwise a comprehensive x 12 points is negative Allergies Coded Allergies: codeine (Verified Allergy, Unknown, Rash, 09/25/16) primidone (Verified Allergy, Unknown, ANXIETY, 09/25/16) Home Medications Atorvastatin Calcium (Atorvastatin Calcium) 10 Mg Tablet 10 MG PO HS Cholecalciferol (Vitamin D3) (Vitamin D) 1,000 Unit Capsule 2,000 UNIT PO DAILY Levothyroxine (Levothyroxine) 88 Mcg Tablet 88 MCG PO DAILY Loratadine (Claritin) 10 Mg Capsule 10 MG PO DAILY Melatonin (Melatonin 1 mg Tablet) 1 Each Tablet 1 MG PO HS Naproxen Sodium (Aleve) 220 Mg Capsule 220 MG PO TID Omeprazole Magnesium (Prilosec Otc) 20 Mg Tablet.dr 20 MG PO DAILY Polyethylene Glycol 3350 (Miralax) 17 Gm Powd.pack 17 GM PO DAILY Propranolol HCl (Propranolol HCl) 10 Mg Tablet 10 MG PO TID Sennosides (Senna) 8.6 Mg Tablet 17.2 MG PO DAILY Triamcinolone Acetonide (Nasacort) 10.8 Ml [place] 1 SPRAY NS DAILY Scheduled PRN Acetaminophen (Acetaminophen) 325 Mg Tablet 650 MG PO BID PRN PRN For Pain Diazepam (Diazepam) 5 Mg Tablet 5 MG PO TID PRN PRN For Anxiety Zolpidem (Zolpidem) 10 Mg Tablet 10 MG PO HS PRN PRN For Insomnia oxyCODONE-Acetaminophen 5-325 mg (oxyCODONE-Acetaminophen 5-325 mg) 1 Each Tablet 1 TAB PO Q6H PRN PRN For Pain PMH Tourettes syndrome Hx non hodgkin's lymphoma Intermittent asthma Anxiety Insomnia Surgical History Appendectomy, Tonsillectomy, Hernia repair Family History Family history reviewed and is noncontributory to the present illness Social History Hx Alcohol Use: Yes ("one beer a day") Hx Substance Use: Yes (marijuana rare) Smoking Status: Never Smoker Living Arrangement: with Family (patient lives with his ) Exam Vital Signs Vital Sign - Last Date Time Temp Pulse Resp B/P Pulse Ox O2 Delivery O2 Flow Rate FiO2 09/25/16 19:00 155/93 09/25/16 18:22 76 09/25/16 17:32 36.6 18 100 Room Air Exam General/Constitutional: No acute distress, Well appearing, Cooperative. Anxious HEENT : Atraumatic, Normocephalic, PERRL, sclerae is anicteric Mouth: Moist oral mucosa, no thrush Neck: Supple, no JVD, Full range of motion, trachea is midline Chest: No chest wall deformity, normal respiratory Lungs: Breath sounds normal, Clear to auscultation, No respiratory distress Cardiovascular: S1, S2 Regular rate & rhythm, Heart sounds normal, Intact distal pulses Abdomen: Nontender, No distention, No palpable mass. Bowel sounds normal Skin: Warm, Dry, No cyanosis Psychiatric: Very Anxious Neurologic: Oriented X3, Speech NL, strength: 3 /5 upper extremity, and 3.5/5 lower extremity Left patellar reflex 2+ Right patellar reflex absent. No sensory deficits Lab and Diagnostics Result Diagram: 09/25/16 1029 09/25/16 1029 X-Rays, CTs and MRIs Cervical spine MRI done on 3:15 reviewed : 1. Mild multilevel degenerative disc disease. 2. Moderate to severe C5-C6 central canal narrowing secondary to degenerative changes. 3. Mild bilateral C4-C5 neural foraminal narrowing. Mild left C5-C6 and C6-C7 neural foraminal narrowing. 4. No neural impingement. 5. No evidence of fracture or subluxation. 6. Image quality by patient motion. CT chest, abdomen, pelvis done on 09/21/2016 reviewed and is negative Assessment & Plan 1. B/l Upper and LE weakness 2. Guillain [place] ? 3. Uncontrolled hypertension Chronic medical problems Hypertension Anxiety Tourette Syndrome Insomnia Hypothyroidism Admit inpatient for generalized weakness/ B/L Upper and LE worsening weakness suspicious for Guillain [place]. Presentation is quite atypical. His symptoms has been going now for [address] Spivey was consulted over the phone . Indeed he sent the patient to the hospital for admission. Telemetry monitoring. Lumbar Puncture done ion ER . Multiple x-ray including recent MRI, Ct scan of chest , abdomen and pelvis are negative Patient need close inpatient monitoring. His cough is weak but has no shortness of breath or difficulty swallowing. Neurology evaluation is pending . Physical therapy evaluation Start Amlodipine 5 mg PO daily for hypertension and IV hydralazine 5 mg Q6H PRN for systolic BP above 160. Home medications for his chronic medical problems . Heparin for DVT prophylaxis VTE Prophylaxis: Sub-Q Heparin (Unfractionated) Time spent 75 minutes Jed Carrasco MD Sep 25, 2016 19:38
[2016-09-25] MEDS: Heparin 5,000 Unit/mL Inj SUBQ SCH (23:01)
[2016-09-26] VITALS (7 sets, daily range): BP systolic 133–172; BP diastolic 82–97; PULSE 66–93; RESP 16–18; O2SAT 97–99
[2016-09-26] MEDS: oxyCODONE-Acetamin 5-325 mg Tablet PO PRN ×2 (03:43→22:06)
[2016-09-26 06:28] LABS: BASOPHILS % (AUTO) 0.5 % (0-3); EOSINOPHILS % (AUTO) 3.4 % (0-5); MONOCYTES % (AUTO) 9.4 % (4-12); Mean Corpuscular Hemoglobin 31.2 pg (27.0-35.0); Mean Corpuscular Volume 88.6 fL (81-100); NEUTROPHILS % (AUTO) 59.8 % (40-74); Platelet Count 257 bil/L (150-400)
--- NOTE | 2016-09-26 06:40 | NUR ---
Pain: Pt with back pain, medicated with Percocet x2 through the night, and scheduled Naproxen at bedtime. Assisted when up, reports weakness to extremities.
[2016-09-26 06:47] LABS: Magnesium 2.4 mg/dL (1.6-2.6)
[2016-09-26] MEDS: Heparin 5,000 Unit/mL Inj SUBQ SCH ×2 (09:28→20:26)
[2016-09-26] MEDS: Fluticasone 0.05% 15 Spray/2 Gm 16 Gm Nasal Spray NASAL SCH (09:29)
[2016-09-26] MEDS: Polyethylene Glycol (PEG) 17 Gm Powder PO SCH (09:29)
--- NOTE | 2016-09-26 09:53 | NUR ---
Evaluation completed. Please go to "Notes" then click on "Assessments and Notes" (bottom left corner of screen). Then select appropriate discipline tab on top of screen.
[2016-09-26 10:15] LABS: APPEARANCE,URINE HAZY (CLEAR,HAZY); COLOR,URINE YELLOW (YELLOW); OCCULT BLOOD,URINE NEGATIVE (NEGATIVE); PH,URINE 5.5 (5.0-8.0); UROBILINOGEN,URINE NORMAL (NORMAL)
--- NOTE | 2016-09-26 11:41 | NUR ---
Evaluation completed. Please go to "Notes" then click on "Assessments and Notes" (bottom left corner of screen). Then select appropriate discipline tab on top of screen.
--- NOTE | 2016-09-26 14:36 | DRSVH ---
PROCEDURE: MRI LUMBAR SPINE WITH AND WITHOUT CONTRAST ([id number]) INDICATIONS: Weakness. TECHNIQUE: Noncontrast sagittal T1 spin echo and T2 fast spin echo, sagittal STIR, axial T1 and T2 fast spin ech o through the lumbar spine. In cases with scoliosis, additional coronal T2 fast spin echo may be per formed. After the administration of contrast, sagittal and axial T1 spin echo with fat saturation th rough the lumbar spine. COMPARISON: None. FINDINGS: Image quality: Excellent. Alignment and curvature: There is normal bony alignment. Marrow: Marrow is of normal overall signal. No acute vertebral body compression fractures. No susp icious marrow enhancement. Spinal cord: Conus medullaris terminates at the L1. There is mild enhancement adjacent to the conus medullaris and involving several anterior nerve roots of the cauda equina concerning for Guillain-Bar r syndrome. Visualized spinal cord demonstrates normal signal, without suspicious enhancement. Paraspinous soft tissues: No paravertebral masses or abnormal enhancement. L1-L2: Normal appearance. L2-L3: Normal appearance. L3-L4: Normal appearance. L4-L5: Normal appearance. L5-S1: Loss of disc signal. Mild, diffuse disc bulge. Mild bilateral facet hypertrophy. No central st enosis. No neural foraminal narrowing. No neural impingement. Focal high intensity zone within the po rta hepatis compatible the fissure. IMPRESSION: 1. 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 2. Mild L5-S1 degenerative disease. 3. L5-S1 disc annulus fissure. 4. No central stenosis. 5. No neural foraminal narrowing. 6. L5-S1 facet arthropathy. Dictated by: Torri Weeks MD, PhD on 09/26/2016 at 14:10 Approved by: Torri Weeks MD, PhD on 09/26/2016 at 14:35
--- NOTE | 2016-09-26 14:41 | DRSVH ---
PROCEDURE: MRI THORACIC SPINE WITH AND WITHOUT CONTRAST ([id number]) INDICATIONS: Thoracic pain, Lower Extremity Weakness TECHNIQUE: Noncontrast sagittal T1 spin echo and T2 fast spin echo, sagittal STIR, axial T1 and T2 fast spin ech o through the thoracic spine. After the administration of contrast, axial and sagittal T1 spin echo with fat saturation through the thoracic spine. COMPARISON: None. FINDINGS: Image quality: Excellent. Alignment and curvature: There is normal bony alignment. Marrow: Marrow is of normal overall signal. No acute vertebral body compression fractures. Spinal cord: Visualized spinal cord is of normal signal and size, without abnormal intramedullary en hancement. There is increased enhancement anterior to the conus medullaris and involving several slig htly thickened anterior nerve roots of the visualized cauda equina. Paraspinous soft tissues: No paravertebral masses or abnormal enhancement. Miscellaneous: Mild multilevel degenerative disc changes are noted. Central canal and foramina appea r widely patent at all scanned levels. IMPRESSION: 1. Increased enhancement anterior to the conus medullaris and involving several slightly thickened an terior nerve roots of the visualized cauda equina suspicious for Guillain-Baez syndrome. Please anthony elate with clinical findings and CSF laboratory data. 2. Mild multilevel degenerative disc disease. 3. No central stenosis. 4. No neural foraminal narrowing 5. No neural impingement. Dictated by: Torri Weeks MD, PhD on 09/26/2016 at 14:37 Approved by: Torri Weeks MD, PhD on 09/26/2016 at 14:40
--- NOTE | 2016-09-26 16:50 | PCM.PNMED ---
Subjective Date of Service Sep 26, [address] Reyes was seen in his room with at bedside this morning. He reports he still feels weak, but denies any CP, SOB, ROMAN, vision changes, or dizziness. Exam Vital Signs Vital Sign - Last Date Time Temp Pulse Resp B/P Pulse Ox O2 Delivery O2 Flow Rate FiO2 09/26/16 14:12 36.7 93 18 157/82 98 Room Air Intake and Output 09/25/16 09/25/16 09/26/16 Cumulative From/Thru 15:00 23:00 07:00 09/25/16 09:43 - 09/26/16 06:24 Intake Total 300 ml 300 ml Output Total 400 ml 1 ml 401 ml Balance -400 ml 299 ml -101 ml Intake Oral 300 ml 300 ml Output Urine Total 400 ml 1 ml 401 ml # Voids 1 1 # Bowel Movements 0 0 Exam Gen: Well developed male who appears in NAD, Alert and oriented, cooperative HEENT: NC/AT, Sclera anicteric CV: RRR, with soft systolic murmur, peripheral pulses intact and equal bilaterally Resp: CTAB, no w/r/c, normal resp effort Abd: Soft, NT, ND, normoactive BS noted MSK: Decreased strength in flexion and armature rewinder of BUE, Decreased strength in flexion and extension of BLE. DTRs 2+ and equal bilaterally Neuro: Grossly intact, sensation grossly intact, babinski neg, occasional jerking of left shoulder tic Skin: Warm, dry, intact Psych: Appropriate mood and affect IVs and Medications Medications Reviewed: Medications were reviewed in detail Lab and Diagnostics Result Diagram: 09/26/16 0603 09/26/16 0603 X-Rays, CTs and MRIs Cervical spine MRI done on 3:15 reviewed : 1. Mild multilevel degenerative disc disease. 2. Moderate to severe C5-C6 central canal narrowing secondary to degenerative changes. 3. Mild bilateral C4-C5 neural foraminal narrowing. Mild left C5-C6 and C6-C7 neural foraminal narrowing. 4. No neural impingement. 5. No evidence of fracture or subluxation. 6. Image quality by patient motion. CT chest, abdomen, pelvis done on 09/21/2016 reviewed and is negative Assessment & Plan 61 yo M with history of Tourette syndrome, anxiety disorder, HTN, and Hypothyroidism who presents with 4 weeks of back pain and progressive bilateral extremity weakness. #Guillain [place] Syndrome, Acute, POA Is likely a sequelae of his severe illness that occurred about 2 months ago while he was on vacation in [place]. Associated with his back pain and progressive extremity weakness. 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 Currently showing no signs of respiratory distress, will continue to monitor on telemetry Planned for MRI of spine today for further evaluation PT/OT evaluation ordered Dr. Duarte, neurology, is consulted. Appreciate time and expertise. Serologies and LP immunological analysis pending. #Hypertension, POA Continue Amlodipine #Anxiety disorder, POA Continue home medications Diazepam prn procedures/imaging Ativan prn anxiety #Tourette Syndrome, POA Has been stable, continue home Propranolol #Hypothyroidism, POA TSH and FT4 WNL Continue home LT4 Tylenol prn pain/fever Zofran prn nausea Ambien prn insomnia Bowel regimen prn constipation Dispo: Will likely require 1-2 more days for evaluation, monitoring, and treatment. Pain Evaluation: Adequate Pain Control VTE Prophylaxis: Sub-Q Heparin (Unfractionated) Resuscitation Status: CPR: Attempt Resuscitation Attending Statement The patient was seen and examined together with Dr. Murry on 09/26/2016 and I agree with the history, exam and plan as outlined in the note above. Sadi Murry DO Sep 26, 2016 16:50 Royer Jade MD Sep 27, 2016 09:15
--- NOTE | 2016-09-26 18:21 | NUR ---
Activity/Pain Patient stand by assist due to unsteady gait, recent fall at home and weakness. Likes to walk holding to someones arm. Back pain. Likes to alternate Naproxen and Tylenol during the day and Percocet at night. Prefers Naproxen with meals.
[2016-09-26] MEDS: hydrALAZINE 20 mg/mL Inj IV PRN (22:06)
[2016-09-27] VITALS (11 sets, daily range): BP systolic 145–181; BP diastolic 84–95; PULSE 72–97; RESP 16–18; O2SAT 94–99
[2016-09-27] MEDS: oxyCODONE-Acetamin 5-325 mg Tablet PO PRN ×3 (02:08→22:25)
[2016-09-27 05:49] LABS: BASOPHILS % (AUTO) 0.8 % (0-3); EOSINOPHILS % (AUTO) 4.3 % (0-5); MONOCYTES % (AUTO) 10.9 % (4-12); Mean Corpuscular Hemoglobin 31.1 pg (27.0-35.0); Mean Corpuscular Volume 89.2 fL (81-100); NEUTROPHILS % (AUTO) 52.9 % (40-74); Platelet Count 254 bil/L (150-400)
[2016-09-27] MEDS: hydrALAZINE 20 mg/mL Inj IV PRN ×2 (05:58→14:38)
[2016-09-27] MEDS ORDERED: 0.9% Sodium Chloride 250 ML IV PRN (09:05)
[2016-09-27] MEDS: Polyethylene Glycol (PEG) 17 Gm Powder PO SCH (09:30)
[2016-09-27] MEDS: Fluticasone 0.05% 15 Spray/2 Gm 16 Gm Nasal Spray NASAL SCH (09:30)
[2016-09-27] MEDS: Heparin 5,000 Unit/mL Inj SUBQ SCH ×2 (09:32→20:15)
[2016-09-27] MEDS: Dexamethasone 4 mg/mL Inj IV SCH (10:12)
[2016-09-27] MEDS: Privigen 10% 10 Gm/100 mL, 20 Gm/200 mL IV SCH ×2 (11:11)
--- NOTE | 2016-09-27 12:43 | NUR ---
IVIG Administration/Pain: VSS. IVIG administration started @ 22.1ml/hr at approx 1100. Vitals remain stable post 15min administration, increased rate to 44ml/hr. No s/s of allergic reaction, vitals signs remain approx in range of pre-admin IVIG, rate increased to 88mls/hr. Patient complained of back pain 8/10 on pain scale. Percocet 1 tab administered, K-pad in place. Will continue to follow.
--- NOTE | 2016-09-27 13:18 | PCM.PNMED ---
Subjective Date of Service Sep 27, 2016 Subjective Estuardo Reyes is a 61 yo M with history of Tourette syndrome, anxiety disorder , HTN, and hypothyroidism who presents with 4 weeks of back pain and progressive bilateral extremity weakness. Now under treatment for GBS. Hospital day #2 Overnight: No acute events. Today: The patient still feels quite weak but he did say that sitting up in his bed was a bit easier today. He denies any difficulty breathing. He does note difficulty swallowing pills but this is a chronic issue for him. He denies any chest pain, fevers, chills, cough, nausea, diarrhea or abdominal pain. The remainder of the review of systems is negative except as noted above. Exam Vital Signs Vital Sign - Last Date Time Temp Pulse Resp B/P Pulse Ox O2 Delivery O2 Flow Rate FiO2 09/27/16 07:53 74 09/27/16 06:00 36.5 16 171/95 99 Room Air Intake and Output 09/26/16 09/26/16 09/27/16 Cumulative From/Thru 15:00 23:00 07:00 09/25/16 09:43 - 09/27/16 00:30 Intake Total 1305 ml 1605 ml Output Total 120 ml 521 ml Balance 1185 ml 1084 ml Intake Oral 1305 ml 1605 ml Output Urine Total 120 ml 521 ml # Voids 5 6 # Bowel Movements 0 Exam Gen: Well developed male who appears in NAD, Alert and oriented, cooperative HEENT: NC/AT, Sclera anicteric CV: RRR, with soft systolic murmur, peripheral pulses intact and equal bilaterally Resp: CTAB, no w/r/c, normal resp effort Abd: Soft, NT, ND, normoactive BS noted MSK: Decreased strength in flexion and j2ee software engineer of BUE, Decreased strength in flexion and extension of BLE. DTRs 2+ and equal bilaterally. Weakness in the hip girdle. Neuro: Grossly intact, sensation grossly intact, Babinski neg, occasional jerking of left shoulder tic. Skin: Warm, dry, intact Psych: Appropriate mood and affect IVs and Medications Medications Reviewed: Medications were reviewed in detail Lab and Diagnostics Result Diagram: 09/27/1651409/27/16514 X-Rays, CTs and MRIs MRI LUMBAR SPINE WITH AND WITHOUT CONTRAST IMPRESSION: 1. 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 2. Mild L5-S1 degenerative disease. 3. L5-S1 disc annulus fissure. 4. No central stenosis. 5. No neural foraminal narrowing. 6. L5-S1 facet arthropathy. Dictated by: Torri Weeks MD, PhD on 09/26/2016 at 14:10 MRI THORACIC SPINE WITH AND WITHOUT CONTRAST IMPRESSION: 1. Increased enhancement anterior to the conus medullaris and involving several slightly thickened anterior nerve roots of the visualized cauda equina suspicious for Guillain-Baez syndrome. Please correlate with clinical findings and CSF laboratory data. 2. Mild multilevel degenerative disc disease. 3. No central stenosis. 4. No neural foraminal narrowing 5. No neural impingement. Dictated by: Torri Weeks MD, PhD on 09/26/2016 at 14:37 Assessment & Plan Estuardo Reyes is a 61 yo M with history of Tourette syndrome, anxiety disorder , HTN, and hypothyroidism who presents with 4 weeks of back pain and progressive bilateral extremity weakness. Now under treatment for GBS. Hospital day #2 1. Guillain-[place] Syndrome, Acute, POA -Is likely a sequelae of his severe illness that occurred about 2 months ago while he was on vacation in [place]. Associated with his back pain and progressive extremity weakness. 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 -Currently showing no signs of respiratory distress, will continue to monitor -MRI consistent with GBS as well. -PT/OT evaluation completed -Dr. Duarte, neurology, is consulted. Appreciate time and expertise. -IVIG started by Dr. Duarte, will clarify the length of treatment with the patient. He may be able to complete it outpatient in the [facility] [place]. 2. Hypertension, POA -Continue Amlodipine 3. Anxiety disorder, POA -Continue home medications -Diazepam prn procedures/imaging -Ativan prn anxiety 4. Tourette Syndrome, POA -Has been stable, continue home Propranolol 5. Hypothyroidism, POA -TSH and FT4 within normal limits -Continue home levothyroxine Tylenol prn pain/fever Zofran prn nausea Ambien prn insomnia Bowel regimen prn constipation Dispo: Will likely require 1 more days for monitoring. May be discharged tomorrow pending his response to IVIG. VTE Prophylaxis: Sub-Q Heparin (Unfractionated) Resuscitation Status: CPR: Attempt Resuscitation Attending Statement The patient was seen and examined together with Dr. Ryan on 09/27/2016 and I agree with the history, exam and plan as outlined in the note above. Jonna Ryan DO Sep 27, 2016 08:28 Royer Jade MD Sep 28, 2016 11:23
--- NOTE | 2016-09-27 16:17 | NUR ---
Social Work: Screening Data: Pt is a 61 y/o male admitted for liliana harris, pt's PCP is Dr Winters, pt's insurance is [facility]. EMR reviewed. No d/c plans anticipated. PT recommending home with outpt PT. PHONE MANAGER will continue to follow if needs arise. Assessment: Pt who is independent at baseline. Plan: Pt will d/c home via POV when medically stable. PHONE MANAGER will continue to follow if needs arise. JANE Gomez
[2016-09-28] VITALS (7 sets, daily range): BP systolic 146–172; BP diastolic 85–96; PULSE 68–91; RESP 16–20; O2SAT 97–99
--- NOTE | 2016-09-28 02:07 | CONS ---
[address] [address] CONSULTATION REPORT PATIENT: ALLYN AGARWAL : 1955 MR#: [id number] ADMIT: 09/25/2016 JOB ID: [id number] NEUROLOGY CONSULTATION: DATE OF SERVICE: 09/26/2016 CHIEF COMPLAINT: Gradually progressive numbness and weakness. HISTORY OF PRESENT ILLNESS: The patient is a very pleasant 61-year-old right-handed man, with multiple medical problems, who initially contacted my office due to new onset, within the last 10-14 days, of the gradual onset of weakness associated with numbness. He reports that he initially noted the onset of weakness when he was swimming in the pool and felt that he was more fatigued than usual. He did have a suspected viral infection with upper respiratory tract symptoms while vacationing in [place] prior to the onset of above-noted symptoms, where he was in bed for two to three days. He also reports that he was in [place] and dined at a restaurant where he dined on venison which was medium rare and pork which was medium rare. He reports the gradual onset of primarily proximal weakness. However, he has also noted distal weakness with increased difficulty using his hands as well as the new onset of left footdrop on September 25, 2016. The patient had been seen earlier in the emergency department and underwent an evaluation and was discharged. Given his constellation of symptoms, we discussed the differential diagnosis in detail and I was concerned for the possibility of acute inflammatory demyelinating polyneuropathy. He reports that he has not noted any respiratory or pulmonary symptoms and has not noted any dysphasia. In light of this, I advised him to go to the emergency department and be admitted for further evaluation, including obtaining a lumbar puncture. He also reports that, prior to the onset of the above-noted symptoms, he developed thoracic pain, principally in between both scapulae, as well as right lower quadrant back pain. He has not noted any other new neurologic symptoms, other than above noted. He has noted numbness and tingling of both his upper and lower extremities. REVIEW OF SYSTEMS: Remarkable for above noted. ALLERGIES: 1. CODEINE. 2. PRIMIDONE. HOME MEDICATIONS: 1. Atorvastatin 10 mg q.h.s. 2. Cholecalciferol 1000 unit capsules, he takes 2000 international units daily. 3. Levothyroxine 88 mcg daily. 4. Loratadine 10 mg daily. 5. Melatonin 1 mg p.o. q.h.s. 6. Naproxen 220 mg p.o. t.i.d. as needed. 7. Omeprazole 20 mg daily. 8. MiraLAX 17 g daily. 9. Propranolol 10 mg p.o. t.i.d. 10. Sennoside 17.2 mg daily as needed. 11. Triamcinolone (Nasacort) 1 spray n.s. daily. As needed medications include: Acetaminophen, diazepam, zolpidem and oxycodone/acetaminophen. PAST MEDICAL HISTORY: Tourette's syndrome, non-Hodgkin's lymphoma with complete remission, intermittent asthma, anxiety and insomnia. PAST SURGICAL HISTORY: Status post appendectomy, status post tonsillectomy, status post hernia repair. FAMILY HISTORY: No family history of any neurologic disorders. SOCIAL HISTORY: He is a retired physician. He lives with his family. He does drink up to one beer a day. Occasional, however rare, marijuana use. He has never smoked. IMAGING STUDIES: I did review prior imaging studies. I have requested the actual images from his magnetic resonance imaging study of the brain performed at [facility] to review in detail. This was reportedly unremarkable. I did review the magnetic resonance imaging study of his cervical spine and the magnetic resonance imaging study of his cervical spine demonstrated mild multilevel degenerative disk disease, moderate to severe C5-C6 central canal narrowing secondary to degenerative changes, mild bilateral C4-C5 neural foraminal narrowing, mild left C5-C6 and C6-C7 neural foraminal narrowing, no neural impingement, no evidence of fracture or subluxation. Image quality was limited by patient motion. I did also obtain and review the magnetic resonance imaging study of his brain from [facility], which did demonstrate T2 hyperintensities. However, none appeared suggestive of a demyelinating disorder, such as multiple sclerosis, or consistent with a possible prior stroke. They are likely white matter disease/microvascular ischemic changes, nonspecific and commonly seen. He also had a carotid duplex performed, which demonstrated less than 50% stenosis of the internal carotid artery on the right. No hemodynamically significant stenosis of the left internal carotid artery. I did also recommend obtaining MRI of the lumbar and thoracic spines. I reviewed these in detail and discussed them with him, as well. 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 No central stenosis, no neural foraminal narrowing. L5-S1 facet arthropathy was seen. The MRI of the thoracic spine demonstrated increased enhancement anterior to the conus medullaris and involving several slightly thickened anterior nerve roots of the visualized cauda equina suspicious for Guillain-Carthage syndrome. Mild multilevel degenerative disk disease. No central stenosis, no neural foraminal narrowing and no neural impingement. IgA level was ordered and is presently pending. LABORATORY STUDIES: Initial laboratory studies revealed the following: A WBC of 11.3 on September 25, 2016. Today, it has normalized to 8.5, hemoglobin 14.3, hematocrit 40.6 and platelets of 257. Chemistries: Sodium 137, potassium 3.6, chloride 99, bicarb was 25, BUN was 20, creatinine was 0.77, glucose 118. LFTs are within normal limits. Total protein is 6.1. TSH is 4.240 and free T4 of 1.74. Urinalysis demonstrated yellow hazy occasional epithelial cells and urine mucus. The first tube was slightly cloudy and straw with 3 WBCs and 575 RBCs and the third tube was clear/colorless with 1 WBC, 0 RBCs, glucose of 70, total protein of 75. PHYSICAL EXAMINATION: Vital signs: Temperature 36.8, pulse of 78, respiratory rate of 16, blood pressure 172/95, pulse oximetry 98% on room air. General: He is a well-developed, well-nourished man in no acute distress. Head: Normocephalic, atraumatic. Neck is supple. INCOMPLETE DICTATION: Dictation ends here.
[2016-09-28] MEDS: oxyCODONE-Acetamin 5-325 mg Tablet PO PRN ×2 (03:27→22:32)
[2016-09-28 06:20] LABS: BASOPHILS % (AUTO) 0.1 % (0-3); EOSINOPHILS % (AUTO) 0.8 % (0-5); MONOCYTES % (AUTO) 8.1 % (4-12); Mean Corpuscular Hemoglobin 31.2 pg (27.0-35.0); Mean Corpuscular Volume 89.6 fL (81-100); NEUTROPHILS % (AUTO) 75.1 % (40-74); Platelet Count 251 bil/L (150-400)
[2016-09-28] MEDS: Polyethylene Glycol (PEG) 17 Gm Powder PO SCH (08:15)
[2016-09-28] MEDS: Heparin 5,000 Unit/mL Inj SUBQ SCH ×2 (08:20→20:10)
[2016-09-28] MEDS: Fluticasone 0.05% 15 Spray/2 Gm 16 Gm Nasal Spray NASAL SCH (08:21)
[2016-09-28] MEDS: Dexamethasone 4 mg/mL Inj IV SCH (10:54)
[2016-09-28] MEDS: Privigen 10% 10 Gm/100 mL, 20 Gm/200 mL IV SCH ×2 (11:49)
--- NOTE | 2016-09-28 13:36 | PCM.PNMED ---
Subjective Date of Service Sep 28, 2016 Subjective Dill reports that he is feeling slightly stronger this morning. The pain in his back has improved also. He tolerated the first dose of IVIG well and has not noticed any fevers, rash, or ROMAN. Exam Vital Signs Vital Sign - Last Date Time Temp Pulse Resp B/P Pulse Ox O2 Delivery O2 Flow Rate FiO2 09/28/16 13:11 36.8 91 20 146/90 99 Room Air Intake and Output 09/27/16 09/27/16 09/28/16 Cumulative From/Thru 15:00 23:00 07:00 09/25/16 09:43 - 09/27/16 19:41 Intake Total 816 ml 1874 ml 4295 ml Output Total 1100 ml 2525 ml 4146 ml Balance -284 ml -651 ml 149 ml Intake Oral 816 ml 1874 ml 4295 ml Output Urine Total 1100 ml 2525 ml 4146 ml # Voids 6 # Bowel Movements 0 0 Exam Gen: Well developed male who appears in NAD, Alert and oriented, cooperative HEENT: NC/AT, Sclera anicteric CV: RRR, with soft systolic murmur, peripheral pulses intact and equal bilaterally Resp: CTAB, normal resp effort Abd: Soft, NT, ND, normoactive BS noted MSK: Mildly Decreased strength in flexion and supervisor blueprinting and photocopy of BUE, Decreased strength in flexion and extension of BLE. DTRs 2+ and equal bilaterally. Weakness in the hip girdle. Neuro: Grossly intact, sensation grossly intact, occasional jerking of left shoulder tic. Normal gait. Skin: Warm, dry, intact Psych: Appropriate mood and affect IVs and Medications Medications Reviewed: Medications were reviewed in detail Lab and Diagnostics Result Diagram: 09/28/1645 09/28/16 0545 X-Rays, CTs and MRIs MRI LUMBAR SPINE WITH AND WITHOUT CONTRAST IMPRESSION: 1. 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 2. Mild L5-S1 degenerative disease. 3. L5-S1 disc annulus fissure. 4. No central stenosis. 5. No neural foraminal narrowing. 6. L5-S1 facet arthropathy. Dictated by: Torri Weeks MD, PhD on 09/26/2016 at 14:10 MRI THORACIC SPINE WITH AND WITHOUT CONTRAST IMPRESSION: 1. Increased enhancement anterior to the conus medullaris and involving several slightly thickened anterior nerve roots of the visualized cauda equina suspicious for Guillain-Baez syndrome. Please correlate with clinical findings and CSF laboratory data. 2. Mild multilevel degenerative disc disease. 3. No central stenosis. 4. No neural foraminal narrowing 5. No neural impingement. Dictated by: Torri Weeks MD, PhD on 09/26/2016 at 14:37 Assessment & Plan Estuardo Reyes is a 61 yo M with history of Tourette syndrome, anxiety disorder , HTN, and hypothyroidism who presents with 4 weeks of back pain and progressive bilateral extremity weakness. Now under treatment for GBS. Hospital day #2 1. Guillain-[place] Syndrome, Acute, POA -Is likely a sequelae of his severe illness that occurred about 2 months ago while he was on vacation in [place]. Associated with his back pain and progressive extremity weakness. 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 -Currently showing no signs of respiratory distress, will continue to monitor -MRI consistent with GBS as well. -PT/OT evaluation completed -Dr. Duarte, neurology, is consulted. Appreciate time and expertise. -IVIG started by Dr. Duarte, will receive additional doses while inpatient. Dr. Duarte is setting up outpatient infusion therapy. 2. Hypertension, POA -Continue Amlodipine BP continues to be elevated. Discussed with patient and he would rather increase Propranolol rather than Amlodipine. 3. Anxiety disorder, POA -Continue home medications -Diazepam prn procedures/imaging -Ativan prn anxiety 4. Tourette Syndrome, POA -Has been stable, continue home Propranolol 5. Hypothyroidism, POA -TSH and FT4 within normal limits -Continue home levothyroxine Tylenol prn pain/fever Zofran prn nausea Ambien prn insomnia Bowel regimen prn constipation Dispo: Will likely require 1 more days for monitoring. Discharge pending IVIG outpatient infusion approval per Dr. Duarte. Pain Evaluation: Adequate Pain Control VTE Prophylaxis: Sub-Q Heparin (Unfractionated) Resuscitation Status: CPR: Attempt Resuscitation Attending Statement The patient was seen and examined together with Dr. Murry on 09/28/2016 and I agree with the history, exam and plan as outlined in the note above. Sadi Murry DO Sep 28, 2016 13:36 Royer Jade MD Sep 29, 2016 11:20
--- NOTE | 2016-09-28 16:26 | NUR ---
Social Work: Continued d/c planning Data: Pt is on day 3 of hospitalization. EMR reviewed. Pt discussed in rounds. DEBT COUNSELOR notified by [facility] that pt's insurance does not cover IVIG for outpt. DEBT COUNSELOR and UR RN followed up throughout the day regarding other options. Options explored. notified DEBT COUNSELOR that pt's typically stay in the hospital for this medication and they are not comfortable sending pt home with IVIG as there are great side effect risks and pt needs to be monitored. [facility] has an outpt clinic in [place] which was able to take pt's insurance and RN's monitor pt during IVIG. DEBT COUNSELOR met with pt and spouse who states that they would rather stay in the hospital for IVIG than travel to [place] daily. DEBT COUNSELOR notified MD and [facility]. DEBT COUNSELOR will continue to follow. Assessment: Pt who is independent at baseline. Plan: Pt will d/c home via POV when medically stable with spouse, likely on Saturday after IVIG is complete. DEBT COUNSELOR will continue to follow. JANE Gomez
--- NOTE | 2016-09-28 18:42 | NUR ---
IVIG Administration: IVIG administered per pharmacy recommended rate and titrated according to patient condition. VSS during administration, no s/s of allergic reaction.
[2016-09-29] MEDS: oxyCODONE-Acetamin 5-325 mg Tablet PO PRN ×3 (04:00→21:47)
[2016-09-29 06:01] VITALS: BP 160/85; PULSE 79; RESP 18; O2SAT 98
--- NOTE | 2016-09-29 06:02 | NUR ---
Pain Patient reports back pain 2-09/14. Medicated with Percocet throughout the night. Patient reports "I slept like a baby". vitals stable. anticipating needs q2 hour rounding completed. will continue to monitor.
[2016-09-29 06:07] LABS: BASOPHILS % (AUTO) 0.1 % (0-3); EOSINOPHILS % (AUTO) 0.5 % (0-5); MONOCYTES % (AUTO) 9.1 % (4-12); Mean Corpuscular Hemoglobin 30.5 pg (27.0-35.0); NEUTROPHILS % (AUTO) 73.6 % (40-74); Platelet Count 273 bil/L (150-400)
[2016-09-29] MEDS: Polyethylene Glycol (PEG) 17 Gm Powder PO SCH (08:47)
[2016-09-29] MEDS: Fluticasone 0.05% 15 Spray/2 Gm 16 Gm Nasal Spray NASAL SCH (08:51)
[2016-09-29] MEDS: Heparin 5,000 Unit/mL Inj SUBQ SCH ×2 (08:53→20:33)
[2016-09-29] MEDS: Dexamethasone 4 mg/mL Inj IV SCH (08:54)
[2016-09-29 09:41] VITALS: BP 163/89; PULSE 73; RESP 18; O2SAT 99
[2016-09-29] MEDS: Privigen 10% 10 Gm/100 mL, 20 Gm/200 mL IV SCH ×2 (10:16)
[2016-09-29 10:36] VITALS: BP 165/87; PULSE 72; RESP 20; O2SAT 93
--- NOTE | 2016-09-29 11:00 | NUR ---
IV access IV IG infusing, R AC AV started to leak, is painful while infusing. Infusion stopped, IV discontinued. Heating pad applied to area of discomfrt. IV attempt x 1 unsuccessful. IV therapy contacted, L IV FA in plave, IV IG infusing. Pt tolerating well. Will continue to monitor.
--- NOTE | 2016-09-29 11:27 | PCM.PNMED ---
Subjective Date of Service Sep 29, 2016 Subjective Reported some mild upper back pain last night that improved with Percocet. Reports he is doing well this morning, feels like his strength is slowly coming back. Denies any fevers, chest pain, shortness of breath, headache, or vision changes. He has been tolerating the IVIG infusions well. Exam Vital Signs Vital Sign - Last Date Time Temp Pulse Resp B/P Pulse Ox O2 Delivery O2 Flow Rate FiO2 09/29/16 10:36 72 20 165/87 93 Room Air 09/29/16 09:41 36.6 Intake and Output 09/28/16 09/28/16 09/29/16 Cumulative From/Thru 15:00 23:00 07:00 09/25/16 09:43 - 09/29/16 06:57 Intake Total 513 ml 1240 ml 300 ml 6348 ml Output Total 800 ml 800 ml 5746 ml Balance 513 ml 440 ml -500 ml 602 ml Intake Oral 513 ml 1240 ml 300 ml 6348 ml Output Urine Total 800 ml 800 ml 5746 ml # Voids 4 10 # Bowel Movements 1 2 3 Exam Gen: Well developed male who appears in NAD, Alert and oriented, cooperative HEENT: NC/AT, Sclera anicteric CV: RRR, with soft systolic murmur, peripheral pulses intact and equal bilaterally Resp: CTAB, normal resp effort Abd: Soft, NT, ND, normoactive BS noted MSK: Mildly Decreased strength in flexion and isotope technologist of BUE, Decreased strength in flexion and extension of BLE. DTRs 2+ and equal bilaterally. Mild weakness in the hip girdle. Neuro: Grossly intact, sensation grossly intact, occasional jerking of left shoulder tic. Normal gait. Skin: Warm, dry, intact Psych: Appropriate mood and affect IVs and Medications Medications Reviewed: Medications were reviewed in detail Lab and Diagnostics Result Diagram: 09/29/16 0540 09/29/16 0540 X-Rays, CTs and MRIs MRI LUMBAR SPINE WITH AND WITHOUT CONTRAST IMPRESSION: 1. 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 2. Mild L5-S1 degenerative disease. 3. L5-S1 disc annulus fissure. 4. No central stenosis. 5. No neural foraminal narrowing. 6. L5-S1 facet arthropathy. Dictated by: Torri Weeks MD, PhD on 09/26/2016 at 14:10 MRI THORACIC SPINE WITH AND WITHOUT CONTRAST IMPRESSION: 1. Increased enhancement anterior to the conus medullaris and involving several slightly thickened anterior nerve roots of the visualized cauda equina suspicious for Guillain-Baez syndrome. Please correlate with clinical findings and CSF laboratory data. 2. Mild multilevel degenerative disc disease. 3. No central stenosis. 4. No neural foraminal narrowing 5. No neural impingement. Dictated by: Torri Weeks MD, PhD on 09/26/2016 at 14:37 Assessment & Plan Estuardo Reyes is a 61 yo M with history of Tourette syndrome, anxiety disorder , HTN, and hypothyroidism who presents with 4 weeks of back pain and progressive bilateral extremity weakness. Now under treatment for GBS. Hospital day #2 1. Guillain-[place] Syndrome, Acute, POA -Is likely a sequelae of his severe illness that occurred about 2 months ago while he was on vacation in [place]. Associated with his back pain and progressive extremity weakness. 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 -Currently showing no signs of respiratory distress, will continue to monitor -MRI consistent with GBS as well. -PT/OT evaluation completed -Dr. Duarte, neurology, is consulted. Appreciate time and expertise. -IVIG started by Dr. Duarte, has been tolerating well, will continue infusions until Saturday to complete a 5 day course. 2. Hypertension, POA -Continue Amlodipine BP continues to be elevated. Discussed with patient and he would rather increase Propranolol rather than Amlodipine. We will continue to monitor and titrate therapy as appropriate 3. Anxiety disorder, POA -Continue home medications -Diazepam prn procedures/imaging -Ativan prn anxiety 4. Tourette Syndrome, POA -Has been stable, continue home Propranolol 5. Hypothyroidism, POA -TSH and FT4 within normal limits -Continue home levothyroxine Tylenol prn pain/fever Zofran prn nausea Ambien prn insomnia Bowel regimen prn constipation Dispo: Likely discharge on Saturday after finishing IVIG infusions Pain Evaluation: Adequate Pain Control VTE Prophylaxis: Sub-Q Heparin (Unfractionated) Resuscitation Status: CPR: Attempt Resuscitation Attending Statement The patient was seen and examined together with Dr. Murry on 09/29/2016 and I agree with the history, exam and plan as outlined in the note above. Sadi Murry DO Sep 29, 2016 11:27 Royer Jade MD Sep 30, 2016 11:12
[2016-09-29 14:28] VITALS: BP 162/88; PULSE 70; RESP 18; O2SAT 99
[2016-09-29 21:14] VITALS: BP 176/96; PULSE 75; RESP 18; O2SAT 97
[2016-09-30] MEDS: oxyCODONE-Acetamin 5-325 mg Tablet PO PRN ×4 (03:00→21:55)
[2016-09-30 03:07] VITALS: BP 164/103; PULSE 71; RESP 20; O2SAT 98
--- NOTE | 2016-09-30 06:42 | NUR ---
Un-Eventful shift. Pt remained mobile and ambulated the halls several times prior to going to sleep. Pt continues to have pain that is well managed with current medications. Pt slept well and is knowledgeable about his current care plan.
[2016-09-30 06:59] LABS: BASOPHILS % (AUTO) 0.1 % (0-3); MONOCYTES % (AUTO) 11.7 % (4-12); Mean Corpuscular Hemoglobin 30.9 pg (27.0-35.0); Mean Corpuscular Volume 89.2 fL (81-100); Platelet Count 274 bil/L (150-400)
[2016-09-30] MEDS: Pantoprazole 20 mg ER24 Tablet PO SCH (07:54)
[2016-09-30] MEDS: Fluticasone 0.05% 15 Spray/2 Gm 16 Gm Nasal Spray NASAL SCH (08:52)
[2016-09-30] MEDS: Polyethylene Glycol (PEG) 17 Gm Powder PO SCH (08:53)
[2016-09-30] MEDS: Heparin 5,000 Unit/mL Inj SUBQ SCH ×2 (08:55→21:53)
[2016-09-30] MEDS: Dexamethasone 4 mg/mL Inj IV SCH (09:03)
[2016-09-30] MEDS: Privigen 10% 10 Gm/100 mL, 20 Gm/200 mL IV SCH ×2 (09:41)
[2016-09-30 09:48] VITALS: BP 167/88; PULSE 75; RESP 20; O2SAT 98
[2016-09-30 10:02] VITALS: BP 152/92; PULSE 70; RESP 20; O2SAT 97
--- NOTE | 2016-09-30 10:09 | NUR ---
Social Work-readiness for discharge: Data:EMR reviewed. Pt is on day 5 of hospitalization for liliana cintron per H&P. Pt is not medically stable, anticipate tomorrow. PT and OT have both cleared pt for home with outpt services. Pt to have last dose of IVIG and then discharge after tomorrow. Pt's to provide transport home. No anticipated discharge needs. SW will continue to follow if needs arise. Assessment:Pt who is independent at baseline. Plan:Pt to discharge home when medically stable via POV. No anticipated discharge needs. SW will continue to follow if needs arise. JANE Minaya
--- NOTE | 2016-09-30 11:15 | PCM.PNMED ---
Subjective Date of Service Sep 30, 2016 Subjective Pt doing well today. He notes he continues to improve daily. Pt states he is now able to walk the halls unassisted. Pt denies any shortness of breath. He reports the paresthesias in bilateral hands has improved since yesterday also. No other complaints or concerns at this time. Exam Vital Signs Vital Sign - Last Date Time Temp Pulse Resp B/P Pulse Ox O2 Delivery O2 Flow Rate FiO2 09/30/16 10:02 70 20 152/92 97 Room Air 09/30/16 09:48 36.6 Intake and Output 09/29/16 09/29/16 09/30/16 Cumulative From/Thru 15:00 23:00 07:00 09/25/16 09:43 - 09/29/16 20:00 Intake Total 1536 ml 7884 ml Output Total 1850 ml 7596 ml Balance -314 ml 288 ml Intake Oral 1236 ml 7584 ml IV Total 300 ml 300 ml Output Urine Total 1850 ml 7596 ml # Voids 10 # Bowel Movements 1 4 Exam GENERAL: NAD, Pt laying in bed comfortably HEENT: AT/NC, PERRLA, EOMI, Mucus Membranes are moist CARDIAC: RRR; No M/R/G PULM: CTAB; No wheezes or rhonchi bilaterally EXT: No C/C/E SKIN: Warm, Dry, [place], and Intact NEURO: Alert and oriented x3; Following all commands PSYCH: Normal mood and affect IVs and Medications Medications Reviewed: Medications were reviewed in detail Lab and Diagnostics Result Diagram: 09/30/16 0620 09/30/16 0620 X-Rays, CTs and MRIs MRI LUMBAR SPINE WITH AND WITHOUT CONTRAST IMPRESSION: 1. 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 2. Mild L5-S1 degenerative disease. 3. L5-S1 disc annulus fissure. 4. No central stenosis. 5. No neural foraminal narrowing. 6. L5-S1 facet arthropathy. Dictated by: Torri Weeks MD, PhD on 09/26/2016 at 14:10 MRI THORACIC SPINE WITH AND WITHOUT CONTRAST IMPRESSION: 1. Increased enhancement anterior to the conus medullaris and involving several slightly thickened anterior nerve roots of the visualized cauda equina suspicious for Guillain-Baez syndrome. Please correlate with clinical findings and CSF laboratory data. 2. Mild multilevel degenerative disc disease. 3. No central stenosis. 4. No neural foraminal narrowing 5. No neural impingement. Dictated by: Torri Weeks MD, PhD on 09/26/2016 at 14:37 Assessment & Plan Estuardo Reyes is a 61 yo M with history of Tourette syndrome, anxiety disorder , HTN, and hypothyroidism who presents with 4 weeks of back pain and progressive bilateral extremity weakness. Now under treatment for GBS. Hospital day #2 1. Guillain-[place] Syndrome, Acute, POA -Is likely a sequelae of his severe illness that occurred about 2 months ago while he was on vacation in [place]. Associated with his back pain and progressive extremity weakness. 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 -Currently showing no signs of respiratory distress, will continue to monitor -MRI consistent with GBS as well. -PT/OT evaluation completed -Dr. Duarte, neurology, is consulted. Appreciate time and expertise. -IVIG started by Dr. Duarte, has been tolerating well, will continue infusions until Saturday to complete a 5 day course. 2. Essential Hypertension, POA -Uncontrolled -Continue Amlodipine 5 mg PO daily, pt refusing increased dosage for fear of lower extremity edema -Continue Propranolol 20 mg TID -Continue to monitor BP closely 3. Anxiety disorder, POA -Continue home medications -Diazepam prn procedures/imaging -Ativan prn anxiety 4. Tourette Syndrome, POA -Has been stable, continue home Propranolol 5. Hypothyroidism, POA -TSH and FT4 within normal limits -Continue home levothyroxine Tylenol prn pain/fever Zofran prn nausea Ambien prn insomnia Bowel regimen prn constipation Dispo: Likely discharge on Saturday after finishing IVIG infusions VTE Prophylaxis: Sub-Q Heparin (Unfractionated) Resuscitation Status: CPR: Attempt Resuscitation Royer Jade MD Sep 30, 2016 11:15
[2016-09-30 13:59] VITALS: BP 164/86; PULSE 71; RESP 20; O2SAT 100
--- NOTE | 2016-09-30 18:23 | NUR ---
Activity/pain Pt ambulating independently in the hallway with cane. Back pain well controlled with ordered medications. Pt encouraged to contact staff for needs. Call light with in reach. Will continue to monitor
[2016-09-30 18:30] VITALS: BP 159/98; PULSE 71; RESP 18; O2SAT 98
[2016-09-30 20:12] VITALS: BP 159/89; PULSE 75; RESP 18; O2SAT 96
[2016-10-01] VITALS (7 sets, daily range): BP systolic 143–175; BP diastolic 83–100; PULSE 68–74; RESP 14–18; O2SAT 97–99
--- NOTE | 2016-10-01 02:59 | NUR ---
Night activity Pt remained in room for the shift, up to bathroom independently. Pt steady on feet, no noted weakness, alert and oriented x4, vitals WNL. Left room with call light at bedside.
[2016-10-01] MEDS: Pantoprazole 20 mg ER24 Tablet PO SCH (08:38)
[2016-10-01] MEDS: Heparin 5,000 Unit/mL Inj SUBQ SCH (08:40)
[2016-10-01] MEDS: Fluticasone 0.05% 15 Spray/2 Gm 16 Gm Nasal Spray NASAL SCH (08:40)
[2016-10-01] MEDS: Polyethylene Glycol (PEG) 17 Gm Powder PO SCH (08:40)
[2016-10-01] MEDS: oxyCODONE-Acetamin 5-325 mg Tablet PO PRN ×3 (10:15→15:01)
[2016-10-01] MEDS: Dexamethasone 4 mg/mL Inj IV SCH (10:17)
[2016-10-01] MEDS: Privigen 10% 10 Gm/100 mL, 20 Gm/200 mL IV SCH ×2 (11:10)
--- NOTE | 2016-10-01 14:04 | PCM.DIMED ---
Sadi Murry DO 10/01/16 1357: Discharge Instructions Date of Service Oct 01, 2016 Dates of Hospitalization Sep 25, 2016 at 16:57 Discharge Diagnosis Discharge Diagnosis 1. Guillain-[place] Syndrome, Acute 2. Essential Hypertension 3. Anxiety disorder 4. Tourette Syndrome 5. Hypothyroidism Medication Instructions Please continue taking your medications as prescribed except the following changes: We have added Amlodipine and Losartan to your regimen. We have also increased your Propranolol dosage. Please take them as directed and measure your blood pressure 2-3 times daily. We have prescribed you Percocet, please take it sparingly and do not drive or drink alcohol while using them Diet Heart Healthy Activity No restrictions Call your provider Fever or Chills, Shortness of breath, Chest pain, Weakness (unilateral) Patient Instructions You are being discharged home today. Please follow up with your PCP within 1 week, and have your blood pressure medications titrated as appropriate. Follow-up Provider: Nato Winters MD Follow-up with PCP in: 1 week Taras Vasques MD 10/01/16 1452: Discharge Instructions Patient Instructions Provider: Stephen Duarte MD Follow-up in: 1 week Attending's Statement The patient was seen and examined independently and discussed case with Dr. Murry on 10/01/2016 and I agree with the discharge instructions and plan as outlined in the note above. Sadi Murry DO Oct 01, 2016 13:57 Taras Vasques MD Oct 01, 2016 14:52
[2016-10-01] MEDS ORDERED: OXYC1TAB24 PO (14:07)
[2016-10-01] MEDS ORDERED: AMLO5TAB2 PO (14:07)
[2016-10-01] MEDS ORDERED: LOSA25TA2 PO (14:07)
[2016-10-01] MEDS ORDERED: PROP20TA5 PO (14:07)
--- NOTE | 2016-10-01 16:04 | NUR ---
Social Work - Discharge Data: EMR reviewed. Pt is on day 6 of hospitalization for Shayy Martinez. Pt is medically stable to discharge today. PT/OT have cleared pt to return home with outpatient services. Pt's family to provide transport home today. All updated and agreeable to plan. Assessment: Pt who is independent at baseline. Plan: Pt to discharge home via family with no needs. PT/OT have cleared pt to return home with outpatient services. JANE Marley
--- NOTE | 2016-10-01 16:34 | NUR ---
Discharge Pt discharged at 1635. He was given discharge instructions and instructions for follow up care. He confirmed understanding of these instructions. He was given 4 prescriptions to take with him. All of his belongings were in his possession at time of discharge. He declined assistance in exiting the hospital. His walked with him to their car where she would be driving him home.
--- NOTE | 2016-10-01 18:00 | PCM.DC.MED ---
Discharge Summary Date of Service Oct 01, 2016 Dates of Hospitalization Date of Hospital Admission Sep 25, 2016 at 16:57 Date of Discharge: Oct 01, 2016 Providers: Admitting Physician: Jed Carrasco MD Primary Care Physician: Nato Winters MD Attending Physician: Jed Carrasco MD Diagnosis at Time of Discharge Diagnosis at Time of Discharge 1. Guillain-Fairview Syndrome, Acute 2. Essential Hypertension 3. Anxiety disorder 4. Tourette Syndrome 5. Hypothyroidism Consultations neurology Dr Spivey Procedures XRay, CTs & MRIs MRI LUMBAR SPINE WITH AND WITHOUT CONTRAST IMPRESSION: 1. 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 2. Mild L5-S1 degenerative disease. 3. L5-S1 disc annulus fissure. 4. No central stenosis. 5. No neural foraminal narrowing. 6. L5-S1 facet arthropathy. Dictated by: Torri Weeks MD, PhD on 09/26/2016 at 14:10 MRI THORACIC SPINE WITH AND WITHOUT CONTRAST IMPRESSION: 1. Increased enhancement anterior to the conus medullaris and involving several slightly thickened anterior nerve roots of the visualized cauda equina suspicious for Guillain-Baez syndrome. Please correlate with clinical findings and CSF laboratory data. 2. Mild multilevel degenerative disc disease. 3. No central stenosis. 4. No neural foraminal narrowing 5. No neural impingement. Dictated by: Torri Weeks MD, PhD on 09/26/2016 at 14:37 Brief History per HI by Dr Carrasco This is a 61 y/o male w/ a hx of previous non Hodgkin's lymphoma , anxiety disorder Tourette Syndrome who presented to the ED w/ his c/o progressively worsening weakness of all 4 extremities for the last past 3 weeks and a half or so. 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 He stated his cough has been weak as well but denies shortness of breath. Extremity weakness is mildly more pronounced at his left arm and leg. A week ago or so he went to his regular swimming activity at the [facility] he said and noted this time he cannot swims as he regularly due to his weakness . He had a couple visit to the emergency room and multiple work up end up empty handed . He also had left flank pain which localized to the LUQ which is intermittently severe enough to cause him to be unable to sleep. a ct scan of chest, abdomen and pelvis were negative. On 09/19/2016, he visited the ED and an MRI of the c-spine showed herniated discs with no acute changes. MRI of the brain at [facility] 3 months ago was normal. Patient was given a referral to a neurologist ( Dr spivey) , only contacted today over the phone and recommended him to continue emergency room again for evaluation for Guillain-Fairview syndrome. An ER his blood pressure was found to be 180-190 systolic. 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 He takes propranolol daily for tremor. No nausea, vomiting, dysphagia, vision change, speech change, fever, chills. Of note , patient was on vacation in [place] 3 months ago and had a flu/febrile illness Hospital Course Estuardo Reyes is a 61 yo M with history of Tourette syndrome, anxiety disorder , HTN, and hypothyroidism who presents with 4 weeks of back pain and progressive bilateral extremity weakness. 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 1. Guillain-Fairview Syndrome, Acute, POA -Is likely a sequelae of his severe illness that occurred about 2 months ago while he was on vacation in [place]. Associated with his back pain and progressive extremity weakness. 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 -Currently showing no signs of respiratory distress, will continue to monitor -MRI consistent with GBS as well. -PT/OT evaluation completed - patient progressed well over the course of admission. -Dr. Spivey, neurology, is consulted. Appreciate time and expertise. -IVIG started by Dr. Spivey, has been tolerating well, infusions were given for 5 days and patient symptomatically improved 2. Essential Hypertension, POA -Uncontrolled -Blood pressures were difficult to control, likely due to pain and Decadron injections with IVIG -Discharged home on Amlodipine, Losartan, and increased Propranolol. -WIll follow up with PCP and titrate down as appropriate 3. Anxiety disorder, POA -Continue home medications -Diazepam prn procedures/imaging -Ativan prn anxiety -stable 4. Tourette Syndrome, POA -Has been stable, continue home Propranolol 5. Hypothyroidism, POA -TSH and FT4 within normal limits -Continue home levothyroxine Tylenol prn pain/fever Zofran prn nausea Ambien prn insomnia Bowel regimen prn constipation Exam Vital Signs (Last) Date Time Temp Pulse Resp B/P Pulse Ox O2 Delivery O2 Flow Rate FiO2 10/01/16 16:04 36.4 74 14 161/93 99 10/01/16 05:08 Room Air Exam Gen: Well developed male who appears in NAD, Alert and oriented, cooperative HEENT: NC/AT, Sclera anicteric CV: RRR, with soft systolic murmur, peripheral pulses intact and equal bilaterally Resp: CTAB, normal resp effort Abd: Soft, NT, ND, normoactive BS noted MSK:MS grossly intact and equal in upper and lower extremities. No swollen or tender joints. Neuro: Grossly intact, sensation grossly intact, occasional jerking of left shoulder tic. Normal gait. Skin: Warm, dry, intact Psych: Appropriate mood and affect Test 09/25/16 10:29 09/25/16 11:28 09/25/16 16:18 09/26/16 05:30 Hold Montesinos Top Tube Received (Received) Hold Urine Received (Received) CSF Appearance Clear (CLEAR) CSF Color Colorless (COLORLESS) CSF WBC 1/mm3 (0-5) CSF RBC 0/mm3 CSF Mononuclear WBCs % CSF Polynuclear WBCs % CSF Other Cells CSF Glucose 70mg/dL (45-90) CSF Total Protein 75mg/dL (15-45) Test 09/26/16 05:35 09/26/16 06:03 09/26/16 08:39 09/26/16 09:50 Thyroid Stimulating Hormone (TSH) 4.240uIU/mL (0.450-4.500) Free Thyroxine 1.74ng/dL (0.82-1.77) Magnesium Level 2.4mg/dL (1.6-2.6) Total Bilirubin 0.4mg/dL (0.0-1.2) Aspartate Amino Transf (AST/SGOT) 34U/L (0-50) Alanine Aminotransferase (ALT/SGPT) 38U/L (0-44) Alkaline Phosphatase 55U/L (25-160) Total Protein 6.1g/dL (6.4-8.4) Albumin 4.0g/dL (3.4-5.0) Erythrocyte Sedimentation Rate 5mm/hr (0-30) Serum Immunoglobulin A 302mg/dL (61-437) Serum Immunoglobulin G 781mg/dL (700-1600) C-Reactive Protein 0.3mg/dL (0.0-0.5) Immunoglobulin M 101mg/dL (20-172) Urine Color Yellow (YELLOW) Urine Appearance Hazy (CLEAR,HAZY) Urine pH 5.5 (5.0-8.0) Urine Specific [place] 1.020 (1.003-1.035) Urine Protein Negativemg/dL (NEG,TRACE) Urine Glucose (UA) Negativemg/dL (NEGATIVE) Urine Ketones Negativemg/dL (NEGATIVE) Urine Occult Blood Negative (NEGATIVE) Urine Nitrite Negative (NEGATIVE) Urine Bilirubin Negative (NEGATIVE) Urine Urobilinogen Normalmg/dL (NORMAL) Urine Leukocyte Esterase Negative (NEGATIVE) Urine RBC 0-2/hpf (0-2) Urine WBC 0-5/hpf (0-5) Urine Epithelial Cells Occasional/hpf (NONE-MOD) Urine Crystals None seen (NONE SEEN) Urine Bacteria None/hpf (NONE-FEW) Urine Hyaline Casts None/lpf (NONE) Urine Granular Casts None seen (NONE SEEN) Urine Waxy Casts None seen (NONE SEEN) Urine Red Blood Cell Casts None seen (NONE SEEN) Urine White Blood Cell Casts None seen (NONE SEEN) Urine Mucus Present (None Seen) Urine Trichomonas None seen (NONE SEEN) Urine Yeast None (NONE SEEN) Urinalysis Comment None Urine Culture Reflexed Not indicated Test 09/30/16 06:20 White Blood Count 9.3th/mm3 (3.8-10.1) Red Blood Count 4.46mil/mm3 (4.40-5.80) Hemoglobin 13.8g/dL (13.8-17.2) Hematocrit 39.8% (41.0-50.0) Mean Corpuscular Volume 89.2fL (81-100) Mean Corpuscular Hemoglobin 30.9pg (27.0-35.0) Mean Corpuscular Hemoglobin Concent 34.7% (32.0-37.0) Red Cell Distribution Width 13.5% (12.3-15.4) Platelet Count 274bil/L (150-400) Neutrophils (%) (Auto) 64.0% (40-74) Lymphocytes (%) (Auto) 23.0% (14-46) Monocytes (%) (Auto) 11.7% (4-12) Eosinophils (%) (Auto) 1.0% (0-5) Basophils (%) (Auto) 0.1% (0-3) Sodium Level 135mEq/L (134-144) Potassium Level 4.0mEq/L (3.5-5.2) Chloride Level 98mEq/L (97-108) Carbon Dioxide Level 26mmol/L (18-29) Blood Urea Nitrogen 19mg/dL (8-27) Creatinine 0.66mg/dL (0.76-1.27) Estimat Glomerular Filtration Rate 130mL/min (>59) Glucose Level 96mg/dL (60-99) Calcium Level 9.8mg/dL (8.5-10.1) Discharge Medications Discharge Medications Amlodipine (Amlodipine) 5 Mg Tablet 10 MG PO DAILY Prescribed by: FILIPPO MURRY DO Atorvastatin Calcium (Atorvastatin Calcium) 10 Mg Tablet 10 MG PO HS (Reported) Cholecalciferol (Vitamin D3) (Vitamin D) 1,000 Unit Capsule 2,000 UNIT PO DAILY (Reported) Levothyroxine (Levothyroxine) 88 Mcg Tablet 88 MCG PO DAILY (Reported) Loratadine (Claritin) 10 Mg Capsule 10 MG PO DAILY (Reported) Losartan Potassium (Cozaar) 25 Mg Tablet 25 MG PO HS Prescribed by: FILIPPO MURRY DO Melatonin (Melatonin 1 mg Tablet) 1 Each Tablet 1 MG PO HS (Reported) Naproxen Sodium (Aleve) 220 Mg Capsule 220 MG PO TID (Reported) Omeprazole Magnesium (Prilosec Otc) 20 Mg Tablet.dr 20 MG PO DAILY (Reported) Polyethylene Glycol 3350 (Miralax) 17 Gm Powd.pack 17 GM PO DAILY (Reported) Propranolol HCl (Propranolol HCl) 20 Mg Tablet 20 MG PO TID Prescribed by: FILIPPO MURRY DO Sennosides (Senna) 8.6 Mg Tablet 17.2 MG PO DAILY (Reported) Triamcinolone Acetonide (Nasacort) 10.8 Ml [place] 1 SPRAY NS DAILY (Reported) As needed Acetaminophen (Acetaminophen) 325 Mg Tablet 650 MG PO BID PRN PRN For Pain ( Reported) Diazepam (Diazepam) 5 Mg Tablet 5 MG PO TID PRN PRN For Anxiety (Reported) Zolpidem (Zolpidem) 10 Mg Tablet 10 MG PO HS PRN PRN For Insomnia (Reported) oxyCODONE-Acetaminophen 5-325 mg (oxyCODONE-Acetaminophen 5-325 mg) 1 Each Tablet 1 TAB PO Q6H PRN PRN For Pain Prescribed by: SCOTT MASTERSON DO oxyCODONE-Acetaminophen 5-325 mg (oxyCODONE-Acetaminophen 5-325 mg) 1 Each Tablet 1 TAB PO Q6H PRN PRN For Pain Prescribed by: FILIPPO MURRY DO Additional med instructions Please continue taking your medications as prescribed except the following changes: We have added Amlodipine and Losartan to your regimen. We have also increased your Propranolol dosage. Please take them as directed and measure your blood pressure 2-3 times daily. We have prescribed you Percocet, please take it sparingly and do not drive or drink alcohol while using them Followup Plan Disposition: Home Follow-up plan please follow up with Dr Spivey in 1-2 weeks Discharge Diet: Heart Healthy Discharge Activity: No restrictions Patient Instructions You are being discharged home today. Please follow up with your PCP within 1 week, and have your blood pressure medications titrated as appropriate. Follow-up Provider: Nato Winters MD Follow-up with PCP in: 1 week Provider: Stephen Spivey MD Follow-up in: 1 week Time spent 35 minutes coordinating discharge Attending Statement The patient was seen and examined independently,discussed case with Dr. Murry on and I agree with the discharge summary as outlined in the note above. copies to: Nato Winters MD, Hong D DO Oct 01, 2016 18:00 Taras Vasques MD Oct 01, 2016 20:31
[2016-10-03 15:07] LABS: CSF IgG Index 0.7 (0.0-0.7); IgG, Quant, CSF 7.8 mg/dL (0.0-8.6); IgG, Syn Rate,CSF 10.9 mg/day (-9.9 TO +3.3); IgG/Alb Ratio, CSF 0.14 (0.00-0.25)
== END 2016-10-01 16:35 | disposition home or self-care (01) | DRG 96 ==
LOC: SED 09:41 → MPC 16:57
PROVIDERS: ADMIT Internal Medicine; ATTEND Internal Medicine
PROC: 009U3ZX Drainage of Spinal Canal, Percutaneous Approach, Diagnostic (ICD-10-PCS; principal; 2016-09-25)
DX: G61.0 Guillain-Barre syndrome (principal); I10 Essential (primary) hypertension; E03.9 Hypothyroidism, unspecified; F41.9 Anxiety disorder, unspecified; F95.2 Tourette's disorder; Z85.72 Personal history of non-Hodgkin lymphomas